=== PATIENT | male | born 1960 | race Caucasian/White ===

== ENCOUNTER 2025-05-22 18:35 | Inpatient (IN) | payer BC, SELFPAY ==
[2025-05-22 14:19] VITALS: BP 123/70
[2025-05-22 14:36] LABS: Hematocrit 44.7 % (39.0-52.0); Hemoglobin 15.4 g/dL (13.0-18.0); Mean Corp Hgb Conc. 34.5 g/dL (33.0-37.0); Mean Corpuscular Volume 86.1 fL (80.0-94.0); Nucleated Red Blood Cells % 0 % (-); Platelet Count 119 10^3/uL (130-400); Red Cell Dist. Width 13.4 % (11.5-14.5)
[2025-05-22 14:47] LABS: ALT (SGPT) 15 U/L (0-50); AST (SGOT) 17 U/L (17-59); Albumin 4.2 g/dl (3.5-5.0); Alkaline Phosphatase 83 U/L (38-126); Blood Urea Nitrogen 16 mg/dl (9-20); Calcium 9.6 mg/dl (8.4-10.2); Carbon Dioxide 22 mmol/L (22-30); Chloride 105 mmol/L (98-107); Glucose 106 mg/dl (70-99); Lipase 30 U/L (23-300); Potassium 4.2 mmol/L (3.5-5.1); Sodium 139 mmol/L (135-145); Total Protein 7.1 g/dl (6.3-8.2); eGFR > 60.00
[2025-05-22] MEDS: NSS 1000 IV (15:25)
[2025-05-22] MEDS: ZOFRAN 4 MG IV (15:31)
[2025-05-22] MEDS: TYLENOL 1000 MG PO (15:33)
--- NOTE | 2025-05-22 17:19 | ED.GENMED ---
History of Present Illness
General
Chief Complaint: Abdominal Symptoms
Time Seen by Provider: 05/22/25 14:58
History of Present Illness
History of Present Illness:
65-year-old male with history of chronic pancreatitis presents to the emergency department for evaluation of nausea, diarrhea, and severe rectal/left gluteal pain that began 4 days ago. Fever began today with sweating. He denies any significant
abdominal pain at this time. No vomiting. Follows with GI at [place] for his chronic pancreatitis, he is on pancreatic enzyme supplementation.
Review of Systems
Review of Systems
Allergies reviewed?: Yes
All Other Systems: ROS reviewed and negative except as documented in HPI and ROS
Phy Exam
Physical Exam
Physical Exam:
GEN: Well appearing, NAD, WDWN
HEENT: Oral mucosa moist, no scleral icterus
Cardiac: Regular rate
Lung: No respiratory distress, no tachypnea
Abdomen: Soft, generally nontender
Rectal: 1 to 2 cm palpable abscess to the left upper perianal soft tissues, slight encroachment on the anal verge with exquisite tenderness to palpation and induration to the left upper gluteal region
MSK: No gross deformity or injuries
Skin: Good color, no pallor or jaundice, no rashes
Neuro: AO x3, moves all extremities freely
Psych: Calm, cooperative
Course
Orders/Labs/Results
Orders:
Orders
05/22/25 14:27
Complete Blood Count/With Diff Urgent
Comprehensive Metabolic Panel Urgent
Lipase Urgent
05/22/25 15:18
Lactic Acid Q4H
Comment: ON ICE, CANCEL 2ND ORDER IF FIRST LACTIC ACID LEVEL <2
Blood Culture Q20M
ELIZABETH Source: Blood/Venous
Specimen Description:
Comment: Urgent from separate sites. If patient screens positive for possible sepsis
Blood Culture Q20M
ELIZABETH Source: Blood/Venous
Specimen Description:
Comment: Urgent from separate sites. If patient screens positive for possible sepsis
05/22/25 15:21
CT Abd/Pel (IV only)-DH only Urgent
Comment:
Reason For Exam: abd pain, fever, diarrhea
05/22/25 15:25
0.9% Sodium Chloride 1000 ml [Nss] 1,000 ml IV BOLUS
05/22/25 15:29
Acetaminophen [Tylenol] 1,000 mg .ROUTE .STK-MED ONE
Ondansetron Injectable [Zofran] 4 mg .ROUTE .STK-MED ONE
05/22/25 15:30
Ondansetron Injectable [Zofran] 4 mg IV NOW STA
05/22/25 15:33
Acetaminophen [Tylenol] 1,000 mg PO NOW STA
05/22/25 17:18
Piperacillin/Tazo 3.375 Gram [Zosyn] 3.375 gram in 50 ml IV NOW
05/22/25 17:57
Admit/Transfer Patient As Directed
Co-Sign Provider:
Level of Care: Inpatient admission
Assign to:: Medical/Surgical
Physician / Group: july
Diagnosis: perianal abscess
Reason for Hospitalization: perianal abscess
Expected length of stay greater than two midnights?: Yes
ELOS- Estimated Length of Stay in days: 3
I certify the patient meets the requirements for IP care: Yes
05/22/25 17:58
Code Status As Directed
Resuscitation Status: Full Code
PRN Pain Medication Management As Directed
May give lesser potent ordered pain med per pt: Yes
preference::
Protocol:: Medication orders for pain may be administered in a
manner that supports deferring to patient preference
when the pt is:
- Requesting an ordered lesser potent pain medication.
Least to most potent pain medications are defined
as: acetaminophen < NSAID < tramadol < opioids
(morphine, oxycodone, hydromorphone).
- Requesting a lesser dose of the same medication IF
ORDERED.
- Requesting a less intrusive route of administration
if both routes are prescribed by the provider (PO <
IV).
05/22/25 18:17
Wound Culture [Wound/Abscess/Other Culture] Urgent
ELIZABETH Source: Abscess
Specimen Description:
Date Specimen was Collected: 05/22/25
Time Specimen was Collected: 18:16
Comment: perirectal
Abnormal Lab Results
05/22/25
14:27
WBC 12.1 H 10^3/uL
(4.8-10.8)
Plt Count 119 L 10^3/uL
(130-400)
MPV 12.0 H fL
(7.4-10.4)
Abs Immat Gran (auto) 0.1 H 10^3/uL
(0-0.05)
Absolute Neuts (auto) 9.9 H 10^3/uL
(1.4-6.5)
Absolute Lymphs (auto) 0.8 L 10^3/uL
(1.2-3.4)
Absolute Monos (auto) 1.3 H 10^3/uL
(0.1-0.6)
Neutrophils % 82.3 H %
(42.2-75.2)
Lymphocytes % 6.2 L %
(20.5-51.1)
Monocytes % 10.8 H %
(1.7-9.3)
Glucose 106 H mg/dl
(70-99)
Total Bilirubin 1.4 H mg/dl
(0.2-1.3)
05/22/25 14:27
05/22/25 14:27
Vital Signs
Initial and Last Documented VS:
Initial Vital Signs
Temp Pulse Resp BP Pulse Ox
99 F 103 18 123/70 99
05/22/25 14:19 05/22/25 14:19 05/22/25 14:19 05/22/25 14:19 05/22/25 14:19
Last Documented Vital Signs
Temp Pulse Resp BP Pulse Ox
98.6 F 78 18 111/69 95
05/22/25 19:32 05/22/25 19:32 05/22/25 19:32 05/22/25 19:32 05/22/25 19:32
MDM/Problems Addressed
MDM/Problems Addressed:
Imaging reveals significant perirectal abscess with subcutaneous gas formation despite lack of prior instrumentation. Colorectal surgery consulted who saw the patient at the bedside to perform stat bedside I&D. Will admit for IV antibiotics and
further management
*Pulse Oximetry
SaO2: 99
Oxygen Mode of Delivery: Room air
Patient hypoxic: no
*Critical Care Note
Total Time (30-74mins, 75-104mins- exclusive of procedures): Not Applicable
ED Attending Note
-
Portions of this chart may have been created with voice recognition software.� Occasional wrong word or��sound alike� substitutions may have occurred due to the inherent limitations of voice recognition software.
Discharge Plan
Departure
Patient Disposition: Admit
Date of Disposition: 05/22/25
Time of Disposition: 17:28
Admit to: Med/Surg
Presentation/result/management discussed w/ accepting MD/DO: Hospitalist
Discharge Problem:
Abscess, perirectal
Interventions
Interventions:
*Risk Screen - Suicide Last Done: 05/22/25 19:32
*General Assessment Last Done: 05/22/25 14:19
*Neglect/Abuse Screening Last Done: 05/22/25 14:19
*ED COVID-19 Vaccine History Last Done: 05/22/25 17:50
FP-Aoacww-Ajpgdxlist Assessment Last Done: 05/22/25 16:11
[2025-05-22] MEDS: ZOSYN 50 IV (17:25)
--- NOTE | 2025-05-22 17:54 | HPS.HSE ---
Addendum entered and electronically signed by Ana María Pinedo MD 05/22/25 19:49:
EKG reviewed-sinus rhythm, LVH, inferior infarct age undetermined. No A-fib
Addendum entered and electronically signed by Ana María Pinedo MD 05/22/25 19:18:
65-year-old man with history of pain in the rectal area. Patient was seen by colorectal surgeon and I&D performed . Pain started Wednesday. Also had mild temperature
CT abdomen pelvis-straightening and edema within the inferior medial left gluteal soft tissues extending towards the perianum associated with 3.2 into 2.4 into 6.7 cm gas and fluid containing collection in the subcutaneous soft tissues consistent
with infection and abscess. Bilateral adrenal nodules measuring 2.7 cm on the right and 2.5 cm on the left. Colonic diverticulosis. Mild splenomegaly. Prior cholecystectomy.
Awake alert oriented
Cardiovascular system S1-S2 appreciated
Chest clear to auscultation
Abdomen soft and nontender
Rectal area with packing
No pedal edema
Right foot drop, weakness of the right hand-chronic both from previous spine surgeries
# Perianal abscess
Status post I&D at bedside
Culture sent
Because of the CT findings will add meropenem and vancomycin
Wound care per colorectal surgeon
Okay for a diet per discussion
# History of coronary disease-with history of 2 stents continue Plavix, losartan, Zetia, statin. Denies any chest pain or shortness of breath
# H/O paroxysmal A-fib-not on anticoagulants anymore. Because of hemoglobin drop he is placed on Plavix now since January 2024
# Mild ijhtdlvvayfmhqpi-hvcuxj-yr
# History of pancreatitis-takes Creon for insufficiency
# History of cervical and lumbar spine fusion-right foot drop, right hand weakness
# Bilateral adrenal nodules-patient needs further workup as outpatient . This should be instructed at discharge
# Diverticulosis
# Active smoker-cessation counseling
# DVT prophylaxis-Lovenox
# Full code
Discussed with colorectal surgeon
Discussed with on the phone at bedside
Part of this note was created using voice recognition system. Occasional wrong word or��sound alike� substitutions may have inadvertently occurred due to the inherent limitations of voice recognition software. If noted kindly bring it to my
attention for correction.
Original Note:
Family Physician
-
Family Physician: Dwayne Schmitz MD
Chief Complaint
-
n/v/d
rectal pain
History of Present Illness
65-year-old male with history of chronic pancreatitis,, A-fib, hyperlipidemia hypertension presents to the emergency department for evaluation of nausea, diarrhea, and severe rectal/left gluteal pain that began 4 days ago. he was sweating today. he
was evaluated by PCP and prescribed doxycycline. Patient complained of dizziness. Patient denied any cough, congestion. Patient denied any chest pain or short of breath. Patient denied any dysuria hematuria.
CT with abscess. I&D at the bedside. patient received Tylenol, normal saline, Zofran, Zosyn in the ER. Blood culture sent from ER
Medical History
Past Medical History
Past Medical History: Reports Other
Additional Past Medical History:
Paroxysmal A-fib, hypertension, hyperlipidemia, dropfoot.
Past Surgical History: Reports Other
Additional Past Surgical History:
Cholecystectomy
Laminectomy
Double fusion
Neck surgery
Social History
Tobacco: Non-smoker
Alcohol: None
Drug: None
Employment: Employed
Family History
Family History: Not pertinent
Allergies / Home Medications
Allergies reflects when Allergies were last updated in [facility].
Home Medications with original date entered in [facility]
Allergy/Medication List:
Allergies
Allergy/AdvReac Type Severity Reaction Status Date / Time
No Known Allergies Allergy Unverified 05/22/25 14:21
Review of Systems
-
Constitutional: Reports No Symptoms
EENT: Reports No Symptoms
Respiratory: Reports No Symptoms
Cardiac: Reports No Symptoms
Abdomen/GI: Reports Abdominal Pain, Nausea, Vomiting and Diarrhea
: Reports No Symptoms
Musculoskeletal: Reports No Symptoms
Skin: Reports No Symptoms
Neurological: Reports No Symptoms
Endocrine: Reports No Symptoms
Hematologic/Lymphatic: Reports No Symptoms
Psych: Reports No Symptoms
Physical Exam
Vital Signs
Vital Signs
Temp Pulse Resp BP Pulse Ox
99.4 F 83 18 123/70 98
05/22/25 16:00 05/22/25 17:45 05/22/25 17:45 05/22/25 14:19 05/22/25 17:45
Physical Exam
General: Well Developed, Well Nourished and No Apparent Distress
HEENT: NormoCephalic, Moist mucous membranes and Atraumatic
Respiratory: Clear
Cardiac: S1/S2 and Regular Rhythm; No Murmur or Rub
GI: Soft, Non Tender, Non Distended and Normal Bowel Sounds; No Organomegaly
Rectal: Deferred by Provider
Musculoskeletal: No Clubbing, No Cyanosis and No Edema
Skin: No Rash
Neuro: AO x 3 and Nonfocal/grossly intact
Psych: Calm
Laboratory Results
-
05/22/25 14:27
05/22/25 14:27
Laboratory Results
Lactic Acid Cancelled 05/22/25 19:30
Total Bilirubin 1.4 mg/dl (0.2-1.3) H 05/22/25 14:27
AST 17 U/L (17-59) 05/22/25 14:27
ALT 15 U/L (0-50) 05/22/25 14:27
Alkaline Phosphatase 83 U/L (38-126) 05/22/25 14:27
Lipase 30 U/L (23-300) 05/22/25 14:27
Data Reviewed
-
CT Scan: Report Reviewed by me
Lab Data: Labs Reviewed by me
Impression/Plan
-
# Rectal/perianal abscess
-Status post I&D at the bedside
-Will continue IV meropenem and Vanco
- Surgery consulted
- WBC 12.1
- CT abdomen pelvis with impression straightening and edema within the inferior medial left gluteal soft tissues extending towards the perineum with associated 3.2 x 2.4 x 6.7 cm gas and fluid containing collection in the subcutaneous soft tissues
consistent with infection and abscess formation.There are bilateral adrenal nodules measuring 2.7 cm on the right and 2.5 cm on the left. These nodules are incompletely characterized on this examination. If not previously evaluated a dedicated
adrenal CT or MRI may be considered for further evaluation.
- ID consulted
# Thrombocytopenia
- Platelets 190
- Continue to monitor
# GERD
- PPI continue
# Essential hypertension
- Losartan continued with hold parameter
# History of laminectomy/double fusion with dropfoot
- Lyrica continued
# Hyperlipidemia
- Rosuvastatin and Zetia continued
# Essential hypertension
- Coreg continue with hold parameter
# History of paroxysmal A-fib
- Obtain EKG
- Patient was on Xarelto which was discontinued due to low hemoglobin
- At present on Plavix
#DVT prophylaxis
-heparin sq
#CODE status
-full code
--- NOTE | 2025-05-22 17:55 | CON.MD ---
Consultation - Medical
-
Full consult to be dictated.
Assessment/Plan: 65 yo M with a number of medical issues with history of perianal abscess treated apparently with antibiotics earlier in the year with new perianal abscess on exam and CT. Has associated pain, erythema, fluctuance, leukocytosis and
fever. Bedside I and D recommended. Risks and benefits discussed and he agrees to proceed. Would keep on antibiotics as well.
Thanks.
Consultation
-
Date/Time Consultation Requested: 05/22/25
Date/Time Consultation Performed: 05/22/25
Performing Provider: Andrew
Reason for Consultation: Perianal abscess
[2025-05-22 18:14] VITALS: BP 135/65
--- NOTE | 2025-05-22 18:59 | W.IMMPOSTOP ---
Surgical Immed Post Op Note
-
Primary Surgeon: Jackie Morales MD
Assisting Surgeon: Kelsie Mcneal MD, PGY6
Pre-op Diagnosis: perianal abscess
Post-op Diagnosis: same
Procedure Performed: incision and drainage of perianal abscess
Anesthesia Type: local
Specimen / Cultures: pus sent for culture
Estimated Blood Loss: 5 cc
Complications: no immediate
Operative Findings: left posterior perianal abscess
Packed with 1/4 inch iodoform and covered with gauze.
updated afterwards.
[2025-05-22 19:32] VITALS: BP 111/69
[2025-05-22 19:34] VITALS: BMI 21.9
[2025-05-22 19:51] VITALS: BP 143/81; BMI 22.9
--- NOTE | 2025-05-22 20:47 | PTCARENOTE ---
Patient received on unit via internal transport as admission from Emergency department. No acute distress is noted upon admission. Endorses chronic pain but declines medications at this time. Admission assessment and vital signs assessment performed
per protocol.
[2025-05-22] MEDS: VANCOCIN 275 MG IV (21:12)
[2025-05-22] MEDS: COREG 6.25 MG PO (21:14)
[2025-05-22] MEDS: PROTONIX 40 MG PO (21:16)
[2025-05-22] MEDS: LYRICA 200 MG PO (22:17)
[2025-05-22] MEDS: MERREM 500 MG IV (22:19)
[2025-05-22] MEDS: STERILE WATER FOR INJECTION 10 ML IV (22:20)
--- NOTE | 2025-05-22 22:46 | PHA.VAN.IN ---
Addendum entered and electronically signed by Dori Ferrera [facility] 05/23/25 09:17:
AUC Dosing Plan
- Dosing Variables
Dosing Weight (kg): 62
Dosing CrCl (ml/min): 81
Vd coefficient (L/kg): 0.7
- Empiric Dosing
Initial / Loading Dose: 1250 MG around 2100
Maintenance Regimen: 750 MG IV Q12H
Estimated AUC (mcg*h/mL): 500
Estimated Peak (mcg*h/mL): 30
Estimated Trough (mcg/ml): 13.6
Estimated Half Life (H): 9.7
- Monitoring
No levels ordered at this time: consider levels in next few days
Original Note:
Assessment
- Assessment
Renal Function: Appears similar to baseline
Concomitant Antimicrobials: MEROPENEM
AUC Dosing Plan
- Empiric Dosing
Initial / Loading Dose: 1250 MG around 2100
Maintenance Regimen: 750 MG IV Q12H
Pharmacokinetics Vancomycin I
- -
Patient Age: 65
Patient Sex: Male
Vancomycin Day #: 1
Indication: Gi / Intra-Abdominal
Requesting Provider: NILES Vidal
Height / Weight:
Height 5 ft 5 in
Actual Weight 62.46 kg
- Vital Signs / Lab Results
Temp Pulse Resp BP Pulse Ox
98.6 F 84 16 143/81 98
05/22/25 19:51 05/22/25 21:14 05/22/25 19:51 05/22/25 21:14 05/22/25 19:51
Lab Results - Hematology
05/22/25
14:27
WBC 12.1 H
Lab Results - Chemistry
05/22/25
14:27
BUN 16
Creatinine 0.8
Albumin 4.2
05/22/25 05/22/25
15:18 19:30
Lactic Acid 1.3 Cancelled
[2025-05-22] MEDS: ZENPEP DELAYED RELEASE CAPSULE 2 CAPSULE PO (23:10)
[2025-05-22 23:21] VITALS: BP 110/59
[2025-05-23] MEDS: MERREM 500 MG IV ×4 (04:13→21:13)
[2025-05-23] MEDS: STERILE WATER FOR INJECTION 10 ML IV ×4 (04:14→21:13)
[2025-05-23] MEDS: VANCOCIN 150 IV ×2 (06:06→17:35)
[2025-05-23 07:05] VITALS: BP 134/69
[2025-05-23 07:38] LABS: Hematocrit 39.5 % (39.0-52.0); Hemoglobin 13.4 g/dL (13.0-18.0); Mean Corp Hgb Conc. 33.9 g/dL (33.0-37.0); Mean Corpuscular Volume 87.0 fL (80.0-94.0); Platelet Count 95 10^3/uL (130-400); Red Cell Dist. Width 13.6 % (11.5-14.5)
[2025-05-23] MEDS: CRESTOR 20 MG PO (08:21)
[2025-05-23] MEDS: SENOKOT-S 1 TABLET PO ×2 (08:21→15:34)
[2025-05-23] MEDS: ZETIA 10 MG PO (08:21)
[2025-05-23] MEDS: ZENPEP DELAYED RELEASE CAPSULE 2 CAPSULE PO ×3 (08:21→17:35)
[2025-05-23] MEDS: PROTONIX 40 MG PO ×2 (08:21→20:28)
[2025-05-23] MEDS: LYRICA 200 MG PO ×3 (08:21→21:10)
[2025-05-23] MEDS: COZAAR 50 MG PO (08:22)
[2025-05-23] MEDS: COREG 6.25 MG PO ×2 (08:24→20:27)
[2025-05-23] MEDS: MIRALAX PO ×2 (08:24→08:29)
--- NOTE | 2025-05-23 08:26 | W.PN.UPDATE ---
Update Note
Progress Note Update
I saw and evaluated the patient. I reviewed the resident�s note and agree with findings and plan as documented in the resident�s note.
Pt states he feels much better since abscess was drained.
Gen: NAD, AAOx3.
Eyes: EOMI, PERRLA, no scleral icterus.
Neck: supple.
CV: RRR, +S1/S2, no m/r/g.
Resp: CTAB, no rales, wheezes, or rhonchi.
Abd: +BS, soft, NT, ND
Skin: No rashes.
Neuro: CN 2-12 intact
Psych: Normal mood and affect.
CT A/P: straightening and edema within the inferior medial left gluteal soft tissues extending towards the perianum associated with 3.2 into 2.4 into 6.7 cm gas and fluid containing collection in the subcutaneous soft tissues consistent with
infection and abscess. Bilateral adrenal nodules measuring 2.7 cm on the right and 2.5 cm on the left. Colonic diverticulosis. Mild splenomegaly. Prior cholecystectomy.
Perianal abscess:
-s/p I&D at bedside on admission
-follow WCx
-CRS following
-wound care
-leukocytosis has resolved
-cont Vanco/Meropenem, c/s ID
Other problems:
CAD with h/o stents: cont Plavix/Zetia/statin
PAF: no on AC [employer]
Mild thrombocytopenia, likely consumptive, trend
Pancreatic insufficiency: cont Creon
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
Tobacco abuse disorder: Cessation counseling
Incidental finding: Bilateral adrenal nodules
FULL/Lovenox
--- NOTE | 2025-05-23 09:10 | PHA.VAN.FU ---
Vancomycin Assessment / Plan
- Assessment
Renal Function: No New Labs Today
Concomitant Antimicrobials: meropenem
- Dosing Plan
Continue: Vanc 750mg Q12H
- Monitoring Plan
No level(s) ordered at this time: consider levels in next few days
- Follow Up
Pharmacy will continue to follow.
Vancomycin Follow UP
- -
Patient Age: 65
Patient Sex: Male
Vancomycin Day #: 2
Indication: Gi / Intra-Abdominal
Requesting Provider: Young Sanchez
Pertinent Antimicrobial Allergies:
NKDA
Height / Weight:
Height 5 ft 5 in
Actual Weight 62.46 kg
- Vital Signs / Lab Results
Temp Pulse Resp BP Pulse Ox
99 F 77 16 110/59 96
05/22/25 23:21 05/23/25 08:22 05/22/25 23:21 05/23/25 08:22 05/22/25 23:21
Lab Results - Hematology
05/22/25 05/23/25
14:27 06:57
WBC 12.1 H 8.6
Lab Results - Chemistry
05/22/25
14:27
BUN 16
Creatinine 0.8
Albumin 4.2
05/22/25 05/22/25
15:18 19:30
Lactic Acid 1.3 Cancelled
--- NOTE | 2025-05-23 10:11 | W.PN.HOSP.TC ---
Today's Communication/Plan
-
Continue wound care
Appreciate ID recs
Assessment / Plan
Assessment / Plan
Dong is a 65-year-old man with a history of CAD s/p stents on Plavix, paroxysmal A-fib, history of pancreatitis with pancreatic insufficiency, diverticulosis, smoking cessation, and bilateral adrenal nodules for which he needs more workup outpatient
who presented to the ED on 05/22/2025 with pain in the rectal area found to have perianal abscess on exam and CT. He is s/p I&D with surgery on 05/22/2025 with CRS following.
#Perianal abscess s/p I&D
-CRS following.
-ID consulted, appreciate recs.
-Follow-up wound cultures and continue wound care.
-Continue IV vancomycin 750 mg twice daily and meropenem 500 mg every 6 hours for now.
#CAD s/p stents
-Continue home Plavix 75 mg p.o. daily, Zetia 10 mg p.o. daily, losartan 50 mg p.o. daily
#Paroxysmal A-fib
-Not on anticoagulation per his [place] mail [place]
#History of pancreatitis
#Pancreatic insufficiency
-Continue home Creon 2 capsules p.o. 3 times daily
#Bilateral adrenal nodules
These were seen on CT A/P 05/22/2025 and need further workup outpatient.
-Instructed patient to follow-up outpatient
#Nicotine dependence
-Continue cessation counseling
DVT prophylaxis: Lovenox
CODE STATUS: Full code
Anticipated Discharge: Within 24 hours (Pending ID recs and CRS clearance.)
Subjective/Interval History
-
Date of Service: May 23, 2025
-S/p I&D of perianal abscess with surgery yesterday. This morning, he is a little bit sore (no pain) at the drainage site, but overall states feeling 'much better.'
-He endorses ongoing chills and sweats, but otherwise no other symptoms. He is awaiting breakfast and states that he usually has a bowel movement afterwards, so he is nervous for that today.
Objective Data
-
Labs:
Laboratory Results
05/23/25
06:57
WBC 8.6
Hgb 13.4
Hct 39.5
Plt Count 95 L D
Vital Signs:
Vital Signs
Temp Pulse Resp BP Pulse Ox
98.1 F 77 20 110/59 96
05/23/25 07:05 05/23/25 08:22 05/23/25 07:05 05/23/25 08:22 05/23/25 07:05
Review of Systems
-
All other systems: Reviewed and negative
Constitutional: Reports Fatigue, Chills and Weakness
Physical Exam
-
General: Well Developed, Well Nourished, No Apparent Distress, Comfortable, Conversant and Other (Sitting leaning to the right side in bed waiting for breakfast.)
HEENT: Normocephalic, Atraumatic and Moist Mucous Membranes
Respiratory: Clear to Auscultation and Non Labored Respirations
Cardiac: Regular Rhythm and S1/S2
GI: Soft, Nontender, Nondistended and Normal Bowel Sounds
Rectal: Deferred by Provider and Other (Dressing and gauze over buttocks noted.)
Musculoskeletal: No Clubbing, No Cyanosis and No Edema
Skin: Warm (And clammy)
Neuro: AO x 3
Psych: Calm and Intact Judgement/Insight
--- NOTE | 2025-05-23 10:26 | W.PN.CRS1 ---
Today's Communication / Plan
-
wound care
finish course of antibiotics
sitz baths
okay for d/c from our perspective
start plavix tomorrow
Assessment/Plan
-
POD#1 incision and drainage of perianal abscess
WBC: 8.6, Hgb 12.4. Vitals normal.
-Dressing changed at bedside this AM. Discussed with patient how to care for wound at home.
-Sitz baths twice a day for 7 days.
-Stool softeners as needed
-Complete course of oral antibiotics
-Follow up in the office in 2 weeks for a wound check
-Okay for d/c from our perspective.
-Restart plavix tomorrow, 05/24/25. Discussed with patient.
Subjective Data
Procedure
05/22/25- incision and drainage of perianal abscess
Subjective Data
Date of Service: May 23, 2025
Patient states he feels well. His pain is completely gone. He is afraid to have a bowel movement. Denies nausea or vomiting.
Objective Data
-
Vital Signs
Temp Pulse Resp BP Pulse Ox
98.1 F 77 20 110/59 96
05/23/25 07:05 05/23/25 08:22 05/23/25 07:05 05/23/25 08:22 05/23/25 07:05
Intake & Output
05/22/25 05/23/25 05/24/25
06:59 06:59 06:59
Other:
Number of approximated MODERATE 1
amounts of urine
Lab Results
05/23/25 06:57
05/22/25 14:27
Physical Exam
-
General: No Acute Distress and AOx3
Abdomen: Soft, Non Distended and Non Tender
Wound: Dressing Changed (wound with no erythema, some pus)
--- NOTE | 2025-05-23 11:12 | CM ---
Patient seen at bedside
IA Completed
Dx: Perianal abcess
OPERATION: Incision and drainage of perianal abscess
ID consult
Lives with Florinda in a 2 story home, 0 JUNE, 8 steps to bed/bath
PLOF: independent, cane used outside
DME: Cane, walker
Denies VN/Rehab
Denies insecurities
PCP: Dwayne Schmitz
Pharmacy: [facility], [address] [place] [address]/[facility]
PLAN: home, no needs anticipated
[2025-05-23 15:05] VITALS: BP 100/56
--- NOTE | 2025-05-23 15:05 | CON.ID ---
Consultation
-
Date/Time Consultation Requested: 05/22/25 PM
Date/Time Consultation Performed: 05/23/25 AM
Requesting Provider: Dr Cameron
Performing Provider: Dr Gay
Reason for Consultation: perirectal abscess
Chief Complaint / Past History
Chief Complaint
The patient states that he has a history of 'boils' abscesses in past so is not surprised to have another episode. He states that this time he had abdominal/rectal pain and mistook his malaise and fatigue for another episode of pancreatitis.He has 4
days of nausea,vomiting, diarrhea and rectal pain and come to ED after experiencing high fever ans sweats at home the day of admission.
History of Present Illness
The patient states that the fever and sweats concerned him and he wasn't improving at home. The symptoms were a bit different from his usual pancreatitis attacks and the rectal pain was getting worse over the last 4 days.
he wasnt having usual abdominal pain that he gets with attacks of pancreatitis.
Past History
Past Medical History: Arrhythmias (AF), HTN (pancreatitis,diverticular disease,,adrenal nodules,drop foot from spine surgery) and Hypercholesterolemia
Past Surgical History: Cholecystectomy and Orthopedic (laminectomy L/S spine with resulting drop foot)
Allergy History:
No Known Allergies Allergy (Verified 05/22/25 19:35)
Medications Reviewed: Yes
Current Antibiotics:
Merrem and Vancomycin
Social History
Tobacco: Non-Smoker
Alcohol: None
Drug: None
Employment: Employed
Family History
Family History: Not Pertinent
Review of Systems
Review of Systems
General: Fever
Gasteroenterology: Nausea, Vomiting and Diarrhea
Endocrine: Weakness and Fatigue
All systems: All other systems were reviewed and were negative
Vital Signs
Temp Pulse Resp BP Pulse Ox
98.1 F 77 20 110/59 96
05/23/25 07:05 05/23/25 08:22 05/23/25 07:05 05/23/25 08:22 05/23/25 07:05
Physical Exam
Physical Exam
Constitutional: No Acute Distress, Well Developed, Comfortable, Chronically Ill, Non-toxic and Cachetic
Head: Normocephalic
Eyes: Pupils Equal, Pupils Round, No Conjunctival Hemorrhage and Sclera Anicteric
Pharynx: Benign
Oral: No Thrush and No Ulcers
Cardiovascular: Regular Rate
Pulmonary: Clear and Non Labored
Gastrointestinal: Soft, Non Tender and Decreased Bowel Sounds
Extremities: Pulses
Musculoskeletal: Other (drop foot right uses cane)
Skin: Warm and Dry
Wound: Other (surgical wound POD#1 dressed)
Neurological: Awake, Alert, Oriented and AO x 3 (drop foot right uses cane ,good eye contact, conversant, appropriate)
Psychological: Calm
Lab / Diagnostic Study Results
05/23/25 06:57
05/22/25 14:27
Abs Immat Gran (auto) 0.1 10^3/uL (0-0.05) H 05/22/25 14:27
Absolute Neuts (auto) 9.9 10^3/uL (1.4-6.5) H 05/22/25 14:27
Absolute Lymphs (auto) 0.8 10^3/uL (1.2-3.4) L 05/22/25 14:27
Absolute Monos (auto) 1.3 10^3/uL (0.1-0.6) H 05/22/25 14:27
Absolute Basos (auto) 0.0 10^3/uL (0-0.2) 05/22/25 14:27
Immature Gran % 0.5 % (0-0.5) 05/22/25 14:27
Neutrophils % 82.3 % (42.2-75.2) H 05/22/25 14:27
Lymphocytes % 6.2 % (20.5-51.1) L 05/22/25 14:27
Monocytes % 10.8 % (1.7-9.3) H 05/22/25 14:27
Eosinophils % 0.0 % (0-6) 05/22/25 14:27
Basophils % 0.2 % (0-2) 05/22/25 14:27
Lactic Acid Cancelled 05/22/25 19:30
Microbiology Results
Micro:
05/22/25 18:17 Wound Culture - Pending
Abscess Gram Stain - Preliminary
05/22/25 15:18 Blood Culture - Pending
Blood/Venous
05/22/25 15:18 Blood Culture - Pending
Blood/Venous
Assessment / Plan
1. CT imaging with fluid collection found left gluteal soft tissue with 2.4 x 3.2 x 6.7 cm collection of liquid/ gas suggestive of abscess with associated stranding in the left gluteal soft tissue ( incidental findings found enlarged spleen and
adrenal nodules)
2. [place]-rectal surgery was consulted with surgery performed with drainage and packing with cultures pending from intra-operative specimen
3. Empiric antibiotic was started with Vancomycin and Merrem
4. Culture results are currently pending with targeted antibiotic to be provided when results available
5. The patient is currently afebrile with decreased leukocytosis
Thank you for calling ID consultation
The ID team will continue to follow with you
Please call u with any questions or concerns
Care Review
Total Time Spent with Patient (in minutes): discussed wound with patient and answered his questions
[2025-05-23 16:10] VITALS: BP 103/61
[2025-05-23] MEDS: ULTRAM 25 MG PO (21:11)
[2025-05-23 23:30] VITALS: BP 119/69
--- NOTE | 2025-05-23 23:40 | PTCARENOTE ---
Patient provided sitz bath for perianal wound. Approximately 1000mls of warm water administered at bedside. Patient verbalizes mild relief of pain at wound site. Area dried, sterile gauze and protective covering applied to protect site.
[2025-05-24] VITALS (7 sets, daily range): BP systolic 108–137; BP diastolic 55–87
[2025-05-24] MEDS: MERREM 500 MG IV ×4 (03:56→21:37)
[2025-05-24] MEDS: STERILE WATER FOR INJECTION 10 ML IV ×4 (03:57→21:37)
[2025-05-24] MEDS: VANCOCIN 150 IV ×2 (05:44→18:15)
[2025-05-24 05:52] LABS: Hematocrit 38.2 % (39.0-52.0); Hemoglobin 13.1 g/dL (13.0-18.0); Mean Corp Hgb Conc. 34.3 g/dL (33.0-37.0); Mean Corpuscular Volume 86.0 fL (80.0-94.0); Platelet Count 102 10^3/uL (130-400); Red Cell Dist. Width 13.5 % (11.5-14.5)
--- NOTE | 2025-05-24 07:55 | PTCARENOTE ---
Surgeon informed at bedside that patient feels another lump on buttock.
--- NOTE | 2025-05-24 08:47 | W.PN.UPDATE ---
Update Note
Progress Note Update
I saw and evaluated the patient. I reviewed the resident�s note and agree with findings and plan as documented in the resident�s note.
Pt states he 'feels another lump.'
Gen: NAD, AAOx3.
Eyes: EOMI, PERRLA, no scleral icterus.
Neck: supple.
CV: remains RRR, +S1/S2, no m/r/g.
Resp: remains CTAB, no rales, wheezes, or rhonchi.
Abd: remains +BS, soft, NT, ND
Skin: No rashes.
Neuro: CN 2-12 intact
Psych: Normal mood and affect.
05/22/25 15:18 Blood/Venous Blood Culture - Preliminary
No Growth in 24 hours- Final report to follow
05/22/25 15:18 Blood/Venous Blood Culture - Preliminary
No Growth in 24 hours- Final report to follow
05/22/25 18:17 Abscess Gram Stain - Preliminary
CT A/P: straightening and edema within the inferior medial left gluteal soft tissues extending towards the perianum associated with 3.2 into 2.4 into 6.7 cm gas and fluid containing collection in the subcutaneous soft tissues consistent with
infection and abscess. Bilateral adrenal nodules measuring 2.7 cm on the right and 2.5 cm on the left. Colonic diverticulosis. Mild splenomegaly. Prior cholecystectomy.
Sepsis (POA) due to perianal abscess:
-s/p I&D at bedside on admission
-follow WCx
-CRS following, recommending repeat CT pelvis
-wound care
-leukocytosis has resolved
-cont Vanco/Meropenem
-ID following
Other problems:
CAD with h/o stents: cont Plavix/Zetia/statin
PAF: no on AC FIRMWARE ARCHITECT
Mild thrombocytopenia, likely consumptive, trend
Pancreatic insufficiency: cont Creon
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
Tobacco abuse disorder: Cessation counseling
Incidental finding: Bilateral adrenal nodules
FULL/Lovenox
--- NOTE | 2025-05-24 08:47 | PHA.VAN.FU ---
Vancomycin Assessment / Plan
- Assessment
Renal Function: No New Labs Today
Concomitant Antimicrobials: meropenem
- Dosing Plan
Continue: Vanc 750mg Q12H
- Monitoring Plan
No level(s) ordered at this time: consider levels in next few days
Monitoring Comments: BUN & SCR ordered per protocol
- Follow Up
Pharmacy will continue to follow.
Vancomycin Follow UP
- -
Patient Age: 65
Patient Sex: Male
Vancomycin Day #: 3
Indication: Gi / Intra-Abdominal
Requesting Provider: Young Sanchez / Dr. Gay
Pertinent Antimicrobial Allergies:
NKDA
Height / Weight:
Height 5 ft 5 in
Actual Weight 62.46 kg
- Vital Signs / Lab Results
Temp Pulse Resp BP Pulse Ox
97.6 F 70 18 127/72 98
05/24/25 07:10 05/24/25 07:10 05/24/25 07:10 05/24/25 07:10 05/24/25 07:10
Lab Results - Hematology
05/22/25 05/23/25 05/24/25
14:27 06:57 05:20
WBC 12.1 H 8.6 6.9
Lab Results - Chemistry
05/22/25
14:27
BUN 16
Creatinine 0.8
Albumin 4.2
05/22/25 05/22/25
15:18 19:30
Lactic Acid 1.3 Cancelled
Microbiology Results
05/22/25 15:18 Blood Culture - Preliminary
Blood/Venous No Growth in 24 hours- Final report to follow
05/22/25 15:18 Blood Culture - Preliminary
Blood/Venous No Growth in 24 hours- Final report to follow
05/22/25 18:17 Gram Stain - Preliminary
Abscess
[2025-05-24] MEDS: ZENPEP DELAYED RELEASE CAPSULE 2 CAPSULE PO ×2 (08:50→17:40)
[2025-05-24] MEDS: CRESTOR 20 MG PO (08:50)
[2025-05-24] MEDS: ULTRAM 25 MG PO (08:50)
--- NOTE | 2025-05-24 08:50 | W.PN.CRS1 ---
Today's Communication / Plan
-
As below
Assessment/Plan
-
65-year-old male with PMH of A-fib, CAD, HLD, HTN, chronic pancreatitis who presented with perianal pain and WBC of 12, CT showing perianal abscess
POD 2 incision and drainage
AFVSS
WBC 6.9 from 8.6
� Due to worsening left-sided anal pain, will repeat CT pelvis with IV contrast
�If abscess identified, will likely perform repeat UA with I&D
� If no abscess identified, likely component of cellulitis and okay for DC from colorectal standpoint once medically clear; will need follow-up with Dr. Morales in 1 to 2 weeks
� Keep NPO until CT done
� Continue antibiotics, follow-up cultures, appreciate ID
�Continue for DVT PPx with Lovenox
�Appreciate hospitalist
Subjective Data
Procedure
05/22/25- incision and drainage of perianal abscess
Subjective Data
Date of Service: May 24, 2025
This morning, complaining of new pain in the perianal region toward the left lateral aspect and the feeling of worsening swelling. Denies any fevers. Otherwise doing well.
Objective Data
-
Vital Signs
Temp Pulse Resp BP Pulse Ox
97.6 F 70 18 127/72 98
05/24/25 07:10 05/24/25 07:10 05/24/25 07:10 05/24/25 07:10 05/24/25 07:10
Intake & Output
05/23/25 05/24/25 05/25/25
06:59 06:59 06:59
Intake Total 1140 / 1140
Balance 1140 / 1140
Intake:
Oral fluids 1140 / 1140
Other:
Number of approximated MODERATE 1 1
amounts of urine
Number of approximated LARGE 1
amounts of urine
Lab Results
05/24/25 05:20
05/22/25 14:27
Physical Exam
-
General: No Acute Distress and AOx3
HEENT: Grossly Normal
Abdomen: Soft, Non Distended and Non Tender
Rectal: Other (Posterior wound clean, no purulence or surrounding erythema, evidence of granulation tissue; left lateral aspect mildly tender to palpation, no palpable fluctuance or erythema)
[2025-05-24] MEDS: COREG 6.25 MG PO ×2 (08:51→20:24)
[2025-05-24] MEDS: LYRICA 200 MG PO ×3 (08:51→21:37)
[2025-05-24] MEDS: PROTONIX 40 MG PO ×2 (08:51→20:24)
[2025-05-24] MEDS: MIRALAX PO (08:51)
[2025-05-24] MEDS: SENOKOT-S 1 TABLET PO ×2 (08:51→17:39)
[2025-05-24] MEDS: COZAAR 50 MG PO (08:51)
[2025-05-24] MEDS: ZETIA 10 MG PO (08:51)
--- NOTE | 2025-05-24 10:29 | W.PN.HOSP.TC ---
Today's Communication/Plan
-
Repeat CT pelvis with IV contrast ISO new anal pain and suspicion for recurrent perianal abscess
Continue IV antibiotics
Assessment / Plan
Assessment / Plan
Dong is a 65-year-old man with a history of CAD s/p stents on Plavix, paroxysmal A-fib, history of pancreatitis with pancreatic insufficiency, diverticulosis, smoking cessation, and bilateral adrenal nodules for which he needs more workup outpatient
who presented to the ED on 05/22/2025 with pain in the rectal area found to have perianal abscess on exam and CT. He is s/p I&D with surgery on 05/22/2025 with CRS following. On 05/24/2025, he endorsed feeling a lump and new anal pain. CRS performed a
physical exam and recommended repeat CT pelvis with IV contrast ISO possible new perianal abscess versus perianal abscess reformation.
#Perianal abscess s/p I&D
#Perianal pain, new on 05/24/2025
-CRS following.
--Recommend repeat CT pelvis with IV contrast on 05/24/2025 given concern for new versus reformation of perianal abscess
--N.p.o. until CT complete
--Follow-up repeat CT pelvis
-ID following, appreciate recs.
--Follow-up wound cultures and continue wound care.
--Continue IV vancomycin 750 mg twice daily and meropenem 500 mg every 6 hours for now.
#CAD s/p stents
-Continue home Plavix 75 mg p.o. daily, Zetia 10 mg p.o. daily, losartan 50 mg p.o. daily
#Paroxysmal A-fib
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
#History of pancreatitis
#Pancreatic insufficiency
-Continue home Creon 2 capsules p.o. 3 times daily
#Bilateral adrenal nodules
These were incidental and seen on CT A/P 05/22/2025 and need further workup outpatient.
-Instructed patient to follow-up outpatient
#Nicotine dependence
-Continue cessation counseling
DVT prophylaxis: Lovenox
CODE STATUS: Full code
Anticipated Discharge: 24 - 48 hours (Pending repeat CT pelvis)
Subjective/Interval History
-
Date of Service: May 24, 2025
-This morning, he says that he feels like abscess is reforming and was having more pain than yesterday. He had to go to the bathroom during our subjective history taking, so the rest of my subjective history was collected in conversation with
nursing and other consultants.
- Per CRS, will make him n.p.o. to repeat CT pelvis with IV contrast.
Objective Data
-
Labs:
Laboratory Results
05/24/25
05:20
WBC 6.9
Hgb 13.1
Hct 38.2 L
Plt Count 102 L
Vital Signs:
Vital Signs
Temp Pulse Resp BP Pulse Ox
97.6 F 70 18 127/72 98
05/24/25 07:10 05/24/25 08:51 05/24/25 07:10 05/24/25 08:51 05/24/25 07:10
I&O
05/23/25 05/24/25 05/25/25
06:59 06:59 06:59
Intake Total 1140 / 1140 240 / 240
Balance 1140 / 1140 240 / 240
Review of Systems
-
History Source: Patient
All other systems: Reviewed and negative
Constitutional: Reports No Appetite (ISO pain) and Fatigue
Genitourinary: Reports Other (Endorses anal pain, similar to previous abscess)
Physical Exam
-
General: Well Nourished, Appears in Distress and Pain
HEENT: Normocephalic, Atraumatic and Moist Mucous Membranes
Respiratory: Clear to Auscultation
Cardiac: Regular Rhythm and S1/S2
GI: Soft and Nontender
Rectal: Deferred by Provider and Other (Covered in gauze)
Musculoskeletal: No Clubbing, No Cyanosis and No Edema
Skin: Warm and Dry
Neuro: AO x 3
Psych: Calm and Intact Judgement/Insight
--- NOTE | 2025-05-24 11:54 | CM ---
Spoke with resident who stated that patient may need IV ABX, however at this time it is not clear what his needs/meds will be. Will await further information.
Plan: Case management will continue to follow and assist with discharge planning. Home with IV ABX and homecare.
[2025-05-24] MEDS: ZENPEP DELAYED RELEASE CAPSULE PO (12:39)
--- NOTE | 2025-05-24 16:22 | W.IMMPOSTOP ---
Addendum entered and electronically signed by Colby Morales MD 05/24/25 16:29:
Updated patient's , Florinda.
Original Note:
Surgical Immed Post Op Note
-
Primary Surgeon: Jackie Morales MD
Assisting Surgeon: Kelsie Mcneal MD
Pre-op Diagnosis: perianal abscess
Post-op Diagnosis: perianal abscess
Procedure Performed: Incision and drainage perinanal abscess
Anesthesia Type: LMA plus local
Specimen / Cultures: none
Estimated Blood Loss: 10 cc
Complications: no immediate
Operative Findings: prior left posterior wound tracked to the right anterior perianal area--counterincision made there
1/2 inch Jeremiah placed connecting old wound and new counterincision.
Will send back to med surg.
--- NOTE | 2025-05-24 16:38 | W.PN.ID1 ---
Date of Service
Date of Service: May 24, 2025
Today's Communication
discussed with patient and
Assessment / Plan
1. CT imaging with fluid collection found left gluteal soft tissue with 2.4 x 3.2 x 6.7 cm collection of liquid/ gas suggestive of abscess with associated stranding in the left gluteal soft tissue ( incidental findings found enlarged spleen and
adrenal nodules)
With recurring pain new CT pelvis done showing new collection which was subsequently drained in OR this AM with intra-operative cultures sent
2. [place]-rectal surgery was consulted with surgery performed with drainage and packing with cultures pending from intra-operative specimen from this AM
3. Empiric antibiotic was started with Vancomycin and Merrem
4. Culture results are currently pending with targeted antibiotic to be provided when results available
5. The patient is currently afebrile with decreased leukocytosis
Thank you for calling ID consultation
The ID team will continue to follow with you
Please call u with any questions or concerns
Subjective / Review of Systems
Continued perianal pain with findings of new collection communicating with previous abscess . Patient returned to OR for re-draining of perianal abscess
Review of Systems: No Fever, No Chills, No Headache, No Pharyngitis, No Stiff Neck, No Swollen Lymph Nodes, No Cough, No Sputum Production, No Chest Pain, No Palpitations, Abdominal Pain, No Nausea, No Vomiting, No Diarrhea, No Dysuria, No Joint
Pain and No Skin Rash (continued fredrick-anal pain with occurance of new abscess which was subsequently drained)
Vital Signs / Physical Exam
Vital Signs
Vital Signs
Temp Pulse Resp BP Pulse Ox
97.6 F 54 11 111/58 99
05/24/25 07:10 05/24/25 16:30 05/24/25 16:30 05/24/25 16:30 05/24/25 16:30
Physical Exam
Constitutional: No Acute Distress, Well Developed, Acutely Ill, Non-toxic and Cachetic
Head: Normocephalic
Eyes: Pupils Equal, Pupils Round, No Conjunctival Hemorrhage and Sclera Anicteric
Oropharyngeal: Benign
Cardiovascular: Regular Rate
Pulmonary: Clear and Non Labored
Gastrointestinal: Soft, Non Tender and Non Distended (fredrick-anal pain/discomfort)
Skin: Warm and Dry
Neurological: Awake, Alert, Oriented, AO x 3 (gait not observed) and No Motor Deficits
Psychological: Calm (cooperative, conversant, pleasant,apprpriate)
Objective Data
Lab Data
Lab Results
05/24/25 05:20
05/22/25 14:27
Lactic Acid Cancelled 05/22/25 19:30
Total Bilirubin 1.4 mg/dl (0.2-1.3) H 05/22/25 14:27
AST 17 U/L (17-59) 05/22/25 14:27
ALT 15 U/L (0-50) 05/22/25 14:27
Alkaline Phosphatase 83 U/L (38-126) 05/22/25 14:27
Most recent labs reviewed.
Microbiology: Report Reviewed (will follow up repeat intra-operative cultures from today's surgery)
Micro Results:
05/22/25 15:18 Blood Culture - Preliminary
Blood/Venous No Growth in 48 hours- Final report to follow
05/22/25 15:18 Blood Culture - Preliminary
Blood/Venous No Growth in 48 hours- Final report to follow
05/24/25 10:00 MRSA Screen - Pending
Nose
05/22/25 18:17 Wound Culture - Preliminary
Abscess No growth
Gram Stain - Preliminary
CT Scan: Report Reviewed (New CT pelvis done this with results reviewed showng new collection with previous collection improved)
Care Review
Total Time Spent with Patient (in minutes): 35
--- NOTE | 2025-05-24 17:09 | PTCARENOTE ---
Received pt from procedure of incision and drainage perinanal abscess via bed. Rectal site assessed, CDI. No complaints of pain.
[2025-05-25 03:05] VITALS: BP 123/71
[2025-05-25] MEDS: VANCOCIN 150 IV ×2 (05:09→17:57)
[2025-05-25] MEDS: STERILE WATER FOR INJECTION 10 ML IV ×4 (05:11→22:03)
[2025-05-25] MEDS: MERREM 500 MG IV ×4 (05:11→22:04)
[2025-05-25 07:00] VITALS: BP 124/76
[2025-05-25 07:19] LABS: Hematocrit 39.3 % (39.0-52.0); Hemoglobin 13.5 g/dL (13.0-18.0); Mean Corp Hgb Conc. 34.4 g/dL (33.0-37.0); Mean Corpuscular Volume 85.4 fL (80.0-94.0); Platelet Count 115 10^3/uL (130-400); Red Cell Dist. Width 13.5 % (11.5-14.5)
[2025-05-25 07:32] LABS: Blood Urea Nitrogen 13 mg/dl (9-20); Estimated Creatinine Clearance 108 ml/min
[2025-05-25] MEDS: CRESTOR 20 MG PO (08:33)
[2025-05-25] MEDS: COREG 6.25 MG PO ×2 (08:33→22:02)
[2025-05-25] MEDS: LYRICA 200 MG PO ×3 (08:33→22:02)
[2025-05-25] MEDS: ZETIA 10 MG PO (08:34)
[2025-05-25] MEDS: PROTONIX 40 MG PO ×2 (08:34→22:03)
[2025-05-25] MEDS: COZAAR 50 MG PO (08:34)
[2025-05-25] MEDS: ZENPEP DELAYED RELEASE CAPSULE 2 CAPSULE PO ×3 (08:36→17:35)
[2025-05-25] MEDS: MIRALAX PO (08:39)
[2025-05-25] MEDS: SENOKOT-S 1 TABLET PO ×2 (08:39→17:35)
[2025-05-25] MEDS: ULTRAM 25 MG PO (08:47)
--- NOTE | 2025-05-25 09:21 | W.PN.UPDATE ---
Update Note
Progress Note Update
I saw and evaluated the patient. I reviewed the resident�s note and agree with findings and plan as documented in the resident�s note.
No new complaints.
Gen: NAD, AAOx3.
Eyes: EOMI, PERRLA, no scleral icterus.
Neck: supple.
CV: continues to remain RRR, +S1/S2, no m/r/g.
Resp: continues to remain CTAB, no rales, wheezes, or rhonchi.
Abd: continues to remain +BS, soft, NT, ND
Skin: No rashes.
Neuro: CN 2-12 intact
Psych: Normal mood and affect
05/22/25 15:18 Blood/Venous Blood Culture - Preliminary
No Growth in 48 hours- Final report to follow
05/22/25 15:18 Blood/Venous Blood Culture - Preliminary
No Growth in 48 hours- Final report to follow
05/22/25 18:17 Abscess Wound Culture - Preliminary
No growth
05/22/25 18:17 Abscess Gram Stain - Preliminary
CT A/P: straightening and edema within the inferior medial left gluteal soft tissues extending towards the perianum associated with 3.2 into 2.4 into 6.7 cm gas and fluid containing collection in the subcutaneous soft tissues consistent with
infection and abscess. Bilateral adrenal nodules measuring 2.7 cm on the right and 2.5 cm on the left. Colonic diverticulosis. Mild splenomegaly. Prior cholecystectomy.
CT Pelvis: Only a few tiny bubbles of air seen at the site of prior abnormal fluid collection suspicious for abscess in the left medial gluteal soft tissues in comparison to recent prior CT. Air is seen without air-fluid level within an approximate
1.9 x 3.4 x 1.0 cm area in the paramedian right perineum at least suspicious for an infectious process.
Sepsis (POA) due to perianal abscess:
-s/p I&D at bedside on admission
-follow WCx/BCxs
-CRS following
-s/p incision and drainage perinanal abscess in the OR on 05/24/25
-wound care
-leukocytosis has resolved
-cont Vanco/Meropenem
-ID following
Other problems:
CAD with h/o stents: cont Plavix/Zetia/statin
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
Mild thrombocytopenia, likely consumptive, trend
Pancreatic insufficiency: cont Creon
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
Tobacco abuse disorder: Cessation counseling
Incidental finding: Bilateral adrenal nodules
FULL/Lovenox
--- NOTE | 2025-05-25 10:45 | W.PN.HOSP.TC ---
Today's Communication/Plan
-
Regular diet s/p second I&D yesterday
Await abscess culture results for specific antibiotic guidance per ID, do not discharge prior
Assessment / Plan
Assessment / Plan
Dong is a 65-year-old man with a history of CAD s/p stents on Plavix, paroxysmal A-fib, history of pancreatitis with pancreatic insufficiency, diverticulosis, smoking cessation, and bilateral adrenal nodules for which he needs more workup outpatient
who presented to the ED on 05/22/2025 with pain in the rectal area found to have perianal abscess on exam and CT. He is s/p I&D with surgery on 05/22/2025 with CRS following. On 05/24/2025, he endorsed feeling a lump and new anal pain. CRS performed a
physical exam and ordered another CT pelvis with IV contrast ISO possible new perianal abscess versus perianal abscess reformation. CT Pelvis: Only a few tiny bubbles of air seen at the site of prior abnormal fluid collection suspicious for abscess
in the left medial gluteal soft tissues in comparison to recent prior CT. Air is seen without air-fluid level within an approximate 1.9 x 3.4 x 1.0 cm area in the paramedian right perineum at least suspicious for an infectious process. As such, he
had a second I&D on 05/24/2025.
#Perianal abscess s/p 2 I&D, 05/22/2025 and 05/24/2025
#Perianal pain
-CRS following s/p 2 CTs and 2 I&D's as above.
--Regular diet
-ID following, appreciate recs.
--Await wound cultures prior to DC and continue wound care.
--Continue IV vancomycin 750 mg twice daily and meropenem 500 mg every 6 hours for now.
#CAD s/p stents
-Continue home Plavix 75 mg p.o. daily, Zetia 10 mg p.o. daily, losartan 50 mg p.o. daily
#Paroxysmal A-fib
-Not on anticoagulation per his welder oxyhydrogen
#History of pancreatitis
#Pancreatic insufficiency
-Continue home Creon 2 capsules p.o. 3 times daily
#Bilateral adrenal nodules
These were incidental and seen on CT A/P 05/22/2025 and need further workup outpatient.
-Instructed patient to follow-up outpatient
#Nicotine dependence
-Continue cessation counseling
DVT prophylaxis: Lovenox
CODE STATUS: Full code
Anticipated Discharge: 24 - 48 hours (Until wound cultures are back and antibiotics can be specific)
Subjective/Interval History
-
Date of Service: May 25, 2025
-This morning, he is sitting at the edge of bed after finishing his breakfast. He reports feeling a lot better as s/p second I&D yesterday.
-He does not have any pain at the operative site, and endorses a great appetite today.
Objective Data
-
Labs:
Laboratory Results
05/25/25
06:44
WBC 9.4
Hgb 13.5
Hct 39.3
Plt Count 115 L
BUN 13
Creatinine 0.6 L
Vital Signs:
Vital Signs
Temp Pulse Resp BP Pulse Ox
97.6 F 67 19 124/76 97
05/25/25 07:00 05/25/25 08:33 05/25/25 07:00 05/25/25 08:34 05/25/25 07:00
I&O
05/24/25 05/25/25 05/26/25
06:59 06:59 06:59
Intake Total 1140 / 1140 1055 / 1055
Balance 1140 / 1140 1055 / 1055
--- NOTE | 2025-05-25 10:47 | W.PN.CRS1 ---
Today's Communication / Plan
-
wound care
antibiotics
d/c per hospitalist
Assessment/Plan
-
65-year-old male with PMH of A-fib, CAD, HLD, HTN, chronic pancreatitis who presented with perianal pain and WBC of 12, CT showing perianal abscess
POD 3 incision and drainage
POD 1 Incision and drainage perinanal abscess
AFVSS
WBC 9.4
� Okay for discharge later today from our perspective. Wound care discussed with patient.
� Sitz baths twice a day
- Stool softeners as needed
- Daily fiber supplement
� Continue antibiotics, follow-up cultures, appreciate ID
�Continue for DVT PPx with Lovenox
�Appreciate hospitalist
Subjective Data
Procedure
05/22/25- incision and drainage of perianal abscess
Subjective Data
Date of Service: May 25, 2025
Patient states he feels much better today. Denies any pain. Had some sweats last night but no fevers or chills. No complaints.
Objective Data
-
Vital Signs
Temp Pulse Resp BP Pulse Ox
97.6 F 67 19 124/76 97
05/25/25 07:00 05/25/25 08:33 05/25/25 07:00 05/25/25 08:34 05/25/25 07:00
Intake & Output
05/24/25 05/25/25 05/26/25
06:59 06:59 06:59
Intake Total 1140 / 1140 1055 / 1055
Balance 1140 / 1140 1055 / 1055
Intake:
Oral fluids 1140 / 1140 680 / 680
IV fluids (Total) 75 / 75
Normosol 75 / 75
IV piggybacks 300 / 300
Other:
Number of approximated MODERATE 1 1
amounts of urine
Number of approximated LARGE 1
amounts of urine
Lab Results
05/25/25 06:44
05/25/25 06:44
Physical Exam
-
General: No Acute Distress and AOx3
Abdomen: Soft, Non Distended and Non Tender
Skin: Warm and Dry
Wound: No Signs of Infection, Granulating Well, Dressing Changed and Other (george in place)
[2025-05-25 11:00] VITALS: BP 134/89
--- NOTE | 2025-05-25 11:34 | W.PN.ID1 ---
Date of Service
Date of Service: May 25, 2025
Today's Communication
patient awaiting culture results for final antibiotic suggestions
Assessment / Plan
1. CT imaging with fluid collection found left gluteal soft tissue with 2.4 x 3.2 x 6.7 cm collection of liquid/ gas suggestive of abscess with associated stranding in the left gluteal soft tissue ( incidental findings found enlarged spleen and
adrenal nodules)
With recurring pain new CT pelvis done showing new collection which was subsequently drained in OR this AM with intra-operative cultures sent
2. [facility]-rectal surgery was consulted with surgery performed with drainage and packing with cultures pending from intra-operative specimen
3. Empiric antibiotic was started with Vancomycin and Merrem//if MRSA screen Neg may D/C Vancomycin and switch to ceftriaxone/oral flagyl if pending abscess culture allows
4. Culture results are currently pending with targeted antibiotic to be provided when results available see above
5. The patient is currently afebrile without leukocytosis
Thank you for calling ID consultation
The ID team will continue to follow with you
Please call u with any questions or concerns
Chief Complaint
-: Other (continued anal pain POD#1 surgical re-drainage of perianal abscess)
Subjective / Review of Systems
Review of Systems: No Fever, No Chills, No Headache, No Pharyngitis, No Stiff Neck, No Swollen Lymph Nodes, No Cough, No Sputum Production, No Chest Pain, No Palpitations, No Abdominal Pain, No Nausea, No Vomiting, No Diarrhea, No Dysuria, No Joint
Pain and No Skin Rash
Vital Signs / Physical Exam
Vital Signs
Vital Signs
Temp Pulse Resp BP Pulse Ox
98.0 F 65 18 134/89 99
05/25/25 11:00 05/25/25 11:00 05/25/25 11:00 05/25/25 11:00 05/25/25 11:00
Physical Exam
Constitutional: No Acute Distress, Well Developed, Comfortable, Acutely Ill, Non-toxic and Cachetic
Head: Normocephalic
Eyes: Pupils Equal, Pupils Round, No Conjunctival Hemorrhage and Sclera Anicteric
Oropharyngeal: Benign
Cardiovascular: Regular Rate
Pulmonary: Clear and Non Labored
Gastrointestinal: Soft, Non Tender, Non Distended and Decreased Bowel Sounds
Extremities: Other (no edema with good ROM)
Skin: Warm and Dry
Wound: Other (using 'do-nut' pillow to ease rectal pain)
Neurological: Awake, Alert, Oriented, AO x 3 and No Motor Deficits
Psychological: Calm (conversant,cooperative, interactive, pleasant)
Objective Data
Lab Data
Lab Results
05/25/25 06:44
05/25/25 06:44
Estimated Creat Clear 108 ml/min 05/25/25 06:44
Lactic Acid Cancelled 05/22/25 19:30
Total Bilirubin 1.4 mg/dl (0.2-1.3) H 05/22/25 14:27
AST 17 U/L (17-59) 05/22/25 14:27
ALT 15 U/L (0-50) 05/22/25 14:27
Alkaline Phosphatase 83 U/L (38-126) 05/22/25 14:27
Most recent labs reviewed.
Microbiology: Report Reviewed
Micro Results:
05/22/25 15:18 Blood Culture - Preliminary
Blood/Venous No Growth in 48 hours- Final report to follow
05/22/25 15:18 Blood Culture - Preliminary
Blood/Venous No Growth in 48 hours- Final report to follow
05/24/25 10:00 MRSA Screen - Pending
Nose
05/22/25 18:17 Wound Culture - Preliminary
Abscess No growth
Gram Stain - Preliminary
CT Scan: Report Reviewed
Care Review
Total Time Spent with Patient (in minutes): 35
--- NOTE | 2025-05-25 12:34 | CM ---
Patient seen at bedside
Awaiting cultures, on antibiotics
discussed VN-does not feel he will need
PLAN: home, no needs anticipated, CM to continue to follow
--- NOTE | 2025-05-25 14:33 | PHA.VAN.FU ---
Addendum entered and electronically signed by Dori Ferrera [facility] 05/25/25 14:36:
BUN & SCR per protocol
Original Note:
Vancomycin Assessment / Plan
- Assessment
Renal Function: Stable
WBC's are: WNL
In the past 24 hrs, patient has been: Afebrile
Concomitant Antimicrobials: meropenem
- Dosing Plan
Continue: Vanc 750mg Q12H
- Monitoring Plan
Peak Level: 05/25 21:00
Trough Level: 05/26 05:30
Monitoring Comments: levels to be drawn after 6th maintenance dose
- Follow Up
Pharmacy will continue to follow.
Vancomycin Follow UP
- -
Patient Age: 65
Patient Sex: Male
Vancomycin Day #: 4
Indication: Gi / Intra-Abdominal
Requesting Provider: Young Sanchez / Dr. Gay
Pertinent Antimicrobial Allergies:
NKDA
Height / Weight:
Height 5 ft 5 in
Actual Weight 62.46 kg
- Vital Signs / Lab Results
Temp Pulse Resp BP Pulse Ox
98.0 F 65 18 134/89 99
05/25/25 11:00 05/25/25 11:00 05/25/25 11:00 05/25/25 11:00 05/25/25 11:00
Lab Results - Hematology
05/22/25 05/23/25 05/24/25
14:27 06:57 05:20
WBC 12.1 H 8.6 6.9
05/25/25
06:44
WBC 9.4
Lab Results - Chemistry
05/22/25 05/25/25
14:27 06:44
BUN 16 13
Creatinine 0.8 0.6 L
Estimated Creat Clear 108
Albumin 4.2
05/22/25 05/22/25
15:18 19:30
Lactic Acid 1.3 Cancelled
Microbiology Results
05/22/25 15:18 Blood Culture - Preliminary
Blood/Venous No Growth in 48 hours- Final report to follow
05/22/25 15:18 Blood Culture - Preliminary
Blood/Venous No Growth in 48 hours- Final report to follow
05/22/25 18:17 Wound Culture - Preliminary
Abscess No growth
Gram Stain - Preliminary
[2025-05-25 15:00] VITALS: BP 122/62
--- NOTE | 2025-05-25 16:21 | PTCARENOTE ---
pt's pain controlled with PRN Ultram, did sitz bath after dressing change this am, wound with granulation, independent in room and hallway, vss, will continue to monitor.
[2025-05-25 20:35] VITALS: BP 145/75
[2025-05-25 23:00] VITALS: BP 127/83
[2025-05-26 00:13] VITALS: BP 127/83
[2025-05-26] MEDS: MERREM 500 MG IV ×2 (04:06→10:21)
[2025-05-26] MEDS: STERILE WATER FOR INJECTION 10 ML IV ×2 (04:06→10:21)
[2025-05-26 06:44] LABS: Hematocrit 38.7 % (39.0-52.0); Hemoglobin 13.1 g/dL (13.0-18.0); Mean Corp Hgb Conc. 33.9 g/dL (33.0-37.0); Mean Corpuscular Volume 86.6 fL (80.0-94.0); Nucleated Red Blood Cells % 0 % (-); Platelet Count 130 10^3/uL (130-400); Red Cell Dist. Width 13.7 % (11.5-14.5)
[2025-05-26 06:56] LABS: Blood Urea Nitrogen 15 mg/dl (9-20); Calcium 9.1 mg/dl (8.4-10.2); Carbon Dioxide 28 mmol/L (22-30); Chloride 110 mmol/L (98-107); Estimated Creatinine Clearance 93 ml/min; Glucose 101 mg/dl (70-99); Magnesium 1.9 mg/dl (1.6-2.3); Potassium 4.3 mmol/L (3.5-5.1); Sodium 143 mmol/L (135-145); eGFR > 60.00
--- NOTE | 2025-05-26 07:23 | W.PN.HOSP.TC ---
Today's Communication/Plan
-
Awaiting abscess culture results for specific antibiotic guidance, continue IV vancomycin 750 mg twice daily and meropenem 500 mg every 6 hours
Infectious disease following.
Colorectal surgery following.
Assessment / Plan
Assessment / Plan
Dong is a 65-year-old man with a history of CAD s/p stents on Plavix, paroxysmal A-fib, history of pancreatitis with pancreatic insufficiency, diverticulosis, smoking cessation, and bilateral adrenal nodules for which he needs more workup outpatient
who presented to the ED on 05/22/2025 with pain in the rectal area found to have perianal abscess on exam and CT. He is s/p I&D with surgery on 05/22/2025 with CRS following. On 05/24/2025, he endorsed feeling a lump and new anal pain. CRS performed a
physical exam and ordered another CT pelvis with IV contrast ISO possible new perianal abscess versus perianal abscess reformation. CT Pelvis: Only a few tiny bubbles of air seen at the site of prior abnormal fluid collection suspicious for abscess
in the left medial gluteal soft tissues in comparison to recent prior CT. Air is seen without air-fluid level within an approximate 1.9 x 3.4 x 1.0 cm area in the paramedian right perineum at least suspicious for an infectious process. As such, he
had a second I&D on 05/24/2025.
#Perianal abscess s/p 2 I&D, 05/22/2025 and 05/24/2025
#Perianal pain
- Colorectal surgery following s/p 2 CTs and 2 I&D's as above.
- Leukocytosis has resolved.
- Continue regular diet
- ID following, appreciate recs.
- Continue wound care. Awaiting wound cultures prior to planning discharge.
- Continue IV vancomycin 750 mg twice daily and meropenem 500 mg every 6 hours for now.
#CAD s/p stents
- Continue home Plavix 75 mg p.o. daily, Zetia 10 mg p.o. daily, losartan 50 mg p.o. daily
# Mild thrombocytopenia
� Likely consumptive, trending
- 130 today 05/26/25, increased from 95 on 05/23/25.
#Paroxysmal A-fib
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
#History of pancreatitis
#Pancreatic insufficiency
-Continue home Creon 2 capsules p.o. 3 times daily
#Bilateral adrenal nodules
These were incidental and seen on CT A/P 05/22/2025 and need further workup outpatient.
-Instructed patient to follow-up outpatient
#Nicotine dependence
-Continue cessation counseling
DVT prophylaxis: Lovenox
CODE STATUS: Full code
Anticipated Discharge: 24 - 48 hours (Colorectal surgery to reevaluate patient, awaiting wound cultures.)
Subjective/Interval History
-
Date of Service: May 26, 2025
Patient states he feels another abscess forming in the right buttock. No other complaints.
Objective Data
-
Labs:
Laboratory Results
05/26/25
05:59
WBC 6.1
Hgb 13.1
Hct 38.7 L
Plt Count 130
Sodium 143
Potassium 4.3
Chloride 110 H
Carbon Dioxide 28
BUN 15
Creatinine 0.7
Glucose 101 H
Calcium 9.1
Vital Signs:
Vital Signs
Temp Pulse Resp BP Pulse Ox
98.9 F 99 18 127/83 97
05/25/25 23:00 05/25/25 23:00 05/25/25 23:00 05/25/25 23:00 05/25/25 23:00
I&O
05/25/25 05/26/25 05/27/25
06:59 06:59 06:59
Intake Total 1055 / 1055 2049
Balance 1055 / 1055 2049
Review of Systems
-
History Source: Patient
All other systems: Reviewed and negative
Constitutional: Reports No Symptoms
EENT: Reports No Symptoms Reported
Respiratory: Reports No Symptoms
Cardiac: Reports No Symptoms
Abdomen/GI: Reports No Symptoms
Breast: Reports No Symptoms
Genitourinary: Reports No Symptoms
Musculoskeletal: Reports No Symptoms
Neuro: Reports No Symptoms
Hematologic / Lymphatic: Reports No Symptoms
Allergy / Immunology: Reports No Symptoms
Physical Exam
-
General: Well Developed, Well Nourished, No Apparent Distress, Comfortable and Conversant
HEENT: Normocephalic, Atraumatic, Moist Mucous Membranes and Anicteric
Respiratory: Clear to Auscultation
Cardiac: Regular Rhythm and S1/S2
GI: Soft, Nontender, Nondistended and Normal Bowel Sounds
Musculoskeletal: No Clubbing, No Cyanosis and No Edema
Skin: Warm
Neuro: Awake and AO x 3
Hematologic / Lymphatic: No Lymphadenopathy
Psych: Calm
Data Reviewed
-
Labs: Labs Reviewed by me and Discussed with Physician
Old Records: Reviewed
--- NOTE | 2025-05-26 07:46 | PHA.VAN.FU ---
Vancomycin Assessment / Plan
- Assessment
Renal Function: Stable
WBC's are: WNL
In the past 24 hrs, patient has been: Afebrile
Concomitant Antimicrobials: MEROPENEM
- Assessment - Therapeutic Drug Monitoring
Extrapolated Cmax (mcg/mL): 16.1
Peak level was drawn: Appropriately
Extrapolated Cmin (mcg/mL): 7.9
Trough Drawn: Appropriately
Calculated AUC (mcg*h/mL): 304
Calculated ke: 0.0787
Calculated half life (H): 8.8
Calculated Vd (L): 62.73
Calculated Vanc CL (ml/min): 82.25
- Dosing Plan
Adjust Regimen to: vancomycin 1250 mg q12h
New Regimen Predicts: AUC, Peak (32.6), Trough (14.3)
- Monitoring Plan
No level(s) ordered at this time: consider levels in next few days
- Follow Up
Pharmacy will continue to follow.
Vancomycin Follow UP
- -
Patient Age: 65
Patient Sex: Male
Vancomycin Day #: 5
Indication: Gi / Intra-Abdominal
Requesting Provider: Young Sanchez / Dr. Gay
Pertinent Antimicrobial Allergies:
NKDA
Height / Weight:
Height 5 ft 5 in
Actual Weight 62.46 kg
- Vital Signs / Lab Results
Temp Pulse Resp BP Pulse Ox
98.9 F 99 18 127/83 97
05/25/25 23:00 05/25/25 23:00 05/25/25 23:00 05/25/25 23:00 05/25/25 23:00
Lab Results - Hematology
05/24/25 05/25/25 05/26/25
05:20 06:44 05:59
WBC 6.9 9.4 6.1
Lab Results - Chemistry
05/25/25 05/26/25
06:44 05:59
BUN 13 15
Creatinine 0.6 L 0.7
Estimated Creat Clear 108 93
Microbiology Results
05/22/25 15:18 Blood Culture - Preliminary
Blood/Venous No Growth in 72 hours- Final report to follow
05/22/25 15:18 Blood Culture - Preliminary
Blood/Venous No Growth in 72 hours- Final report to follow
05/24/25 10:00 MRSA Screen - Final
Nose No Methicillin Resistant Staphylococcus aureus isolated.
05/22/25 18:17 Wound Culture - Preliminary
Abscess No growth
Gram Stain - Preliminary
Therapeutic Drug Monitoring
Vancomycin Peak 16.1 ug/ml (18-26) L 05/25/25 20:56
Vancomycin Trough 7.9 ug/ml (5-20) 05/26/25 05:59
[2025-05-26] MEDS: VANCOCIN IV (07:53)
[2025-05-26] MEDS: VANCOCIN 275 MG IV (07:55)
[2025-05-26] MEDS: CRESTOR 20 MG PO (07:57)
[2025-05-26] MEDS: PROTONIX 40 MG PO ×2 (07:58→21:19)
[2025-05-26] MEDS: ZENPEP DELAYED RELEASE CAPSULE 2 CAPSULE PO ×3 (07:58→17:36)
[2025-05-26] MEDS: SENOKOT-S 1 TABLET PO ×2 (07:58→17:37)
[2025-05-26] MEDS: ZETIA 10 MG PO (07:58)
[2025-05-26] MEDS: COZAAR 50 MG PO (07:58)
[2025-05-26] MEDS: LYRICA 200 MG PO ×3 (07:58→21:19)
[2025-05-26] MEDS: MIRALAX 17 GRAMS PO (07:58)
[2025-05-26 08:00] VITALS: BP 150/79
[2025-05-26] MEDS: COREG PO (08:00)
[2025-05-26] MEDS: ULTRAM 25 MG PO ×2 (08:21→17:47)
--- NOTE | 2025-05-26 08:52 | W.PN.UPDATE ---
Update Note
Progress Note Update
I saw and evaluated the patient. I reviewed the resident�s note and agree with findings and plan as documented in the resident�s note.
Pt states he feels another perianal 'lump.'
Gen: NAD, AAOx3.
Eyes: EOMI, PERRLA, no scleral icterus.
Neck: supple.
CV: RRR, +S1/S2, no m/r/g.
Resp: CTAB, no rales, wheezes, or rhonchi.
Abd: +BS, soft, NT, ND
Skin: No rashes.
Neuro: CN 2-12 intact
Psych: Normal mood and affect
05/22/25 15:18 Blood/Venous Blood Culture - Preliminary
No Growth in 72 hours- Final report to follow
05/22/25 15:18 Blood/Venous Blood Culture - Preliminary
No Growth in 72 hours- Final report to follow
05/24/25 10:00 Nose MRSA Screen - Final
No Methicillin Resistant Staphylococcus aureus isolated.
05/22/25 18:17 Abscess Wound Culture - Preliminary
No growth
05/22/25 18:17 Abscess Gram Stain - Preliminary
CT A/P: straightening and edema within the inferior medial left gluteal soft tissues extending towards the perianum associated with 3.2 into 2.4 into 6.7 cm gas and fluid containing collection in the subcutaneous soft tissues consistent with
infection and abscess. Bilateral adrenal nodules measuring 2.7 cm on the right and 2.5 cm on the left. Colonic diverticulosis. Mild splenomegaly. Prior cholecystectomy.
CT Pelvis: Only a few tiny bubbles of air seen at the site of prior abnormal fluid collection suspicious for abscess in the left medial gluteal soft tissues in comparison to recent prior CT. Air is seen without air-fluid level within an approximate
1.9 x 3.4 x 1.0 cm area in the paramedian right perineum at least suspicious for an infectious process.
Sepsis (POA) due to perianal abscess:
-s/p I&D at bedside on admission
-follow WCx/BCxs (see above)
-CRS following
-s/p incision and drainage perinanal abscess in the OR on 05/24/25
-wound care
-leukocytosis has resolved
-cont Vanco/Meropenem as per ID
Other problems:
CAD with h/o stents: cont Plavix/Zetia/statin
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
Mild thrombocytopenia, likely consumptive, trend
Pancreatic insufficiency: cont Creon
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
Tobacco abuse disorder: Cessation counseling
Incidental finding: Bilateral adrenal nodules
FULL/Lovenox
--- NOTE | 2025-05-26 12:21 | W.PN.CRS1 ---
Today's Communication / Plan
-
Tentative OR tomorrow
Assessment/Plan
-
65-year-old male with PMH of A-fib, CAD, HLD, HTN, chronic pancreatitis who presented with perianal pain and WBC of 12, CT showing perianal abscess
POD 4 incision and drainage of perianal abscess
POD 2 Incision and drainage perianal abscess with george placement
AFVSS
No leukocytosis
New increasing tenderness to site
CX prelim with many gram +cocci and gram - rods
Plan:
� Continue diet through today, NPO after MN in case OR needed
� Sitz baths twice a day
- Stool softeners as needed
- Daily fiber supplement
� Continue antibiotics, follow-up cultures, appreciate ID
�Continue for DVT PPx with Lovenox
�Appreciate hospitalist
Subjective Data
Procedure
05/22/25- incision and drainage of perianal abscess
Subjective Data
Date of Service: May 26, 2025
Pt seen and examined at bedside with Dr. Morales. Tolerating diet. Passing stools and using sitz bath. Increasing tenderness to the perianal region.
Objective Data
-
Vital Signs
Temp Pulse Resp BP Pulse Ox
97.6 F 58 16 150/79 100
05/26/25 08:00 05/26/25 08:00 05/26/25 08:00 05/26/25 08:00 05/26/25 08:00
Intake & Output
05/25/25 05/26/25 05/27/25
06:59 06:59 06:59
Intake Total 1055 / 1055 2049
Balance 1055 / 1055 2049
Intake:
Oral fluids 680 / 680 1800 / 1800
IV fluids (Total) 75 / 75 250 / 250
Normosol 75 / 75
IV piggybacks 300 / 300
Other:
Number of approximated MODERATE 1 4
amounts of urine
Lab Results
05/26/25 05:59
05/26/25 05:59
Physical Exam
-
General: No Acute Distress and AOx3
Abdomen: Soft, Non Distended and Non Tender
Skin: Warm and Dry
Wound: Other (george in place, no palpable new induration or purulence at site but markedly tender)
--- NOTE | 2025-05-26 14:25 | W.PN.ID1 ---
Date of Service
Date of Service: May 26, 2025
Today's Communication
De-escalate to Unasyn.
Assessment / Plan
# Raiza-anal abscess
- s/p I+D 05/22 and 05/24
- To OR tomorrow for 3rd I+D ?new abscess vs residual abscess
- 05/22/25 Abscess gram stain: GPC, GNR; aerobic cx negative. Suspect anaerobes.
- DC Vancomycin and meropenem.
- De-escalate to Unasyn 3g IV q6h.
Chief Complaint
-: Other (continued anal pain POD#1 surgical re-drainage of perianal abscess)
Subjective / Review of Systems
c/o worsening perianal pain again today.
To OR tomorrow for I+D
Vital Signs / Physical Exam
Vital Signs
Vital Signs
Temp Pulse Resp BP Pulse Ox
97.6 F 58 16 150/79 100
05/26/25 08:00 05/26/25 08:00 05/26/25 08:00 05/26/25 08:00 05/26/25 08:00
Objective Data
Lab Data
Lab Results
05/26/25 05:59
05/26/25 05:59
Estimated Creat Clear 93 ml/min 05/26/25 05:59
Lactic Acid Cancelled 05/22/25 19:30
Total Bilirubin 1.4 mg/dl (0.2-1.3) H 05/22/25 14:27
AST 17 U/L (17-59) 05/22/25 14:27
ALT 15 U/L (0-50) 05/22/25 14:27
Alkaline Phosphatase 83 U/L (38-126) 05/22/25 14:27
Most recent labs reviewed.
Micro Results:
05/22/25 18:17 Wound Culture - Final
Abscess No growth
Gram Stain - Final
05/22/25 15:18 Blood Culture - Preliminary
Blood/Venous No Growth in 72 hours- Final report to follow
05/22/25 15:18 Blood Culture - Preliminary
Blood/Venous No Growth in 72 hours- Final report to follow
05/24/25 10:00 MRSA Screen - Final
Nose No Methicillin Resistant Staphylococcus aureus isolated.
05/24/25 CT pelvis: Only a few tiny bubbles of air seen at the site of prior abnormal fluid collection suspicious for abscess in the left medial gluteal soft tissues in comparison to recent prior CT. Air is seen without air-fluid level within an
approximate 1.9 x 3.4 x 1.0 cm area in the paramedian right perineum at least suspicious for an infectious process.
05/22/25 CT a/p: There is straightening and edema within the inferior medial left gluteal soft tissues extending towards the perineum with associated 3.2 x 2.4 x 6.7 cm gas and fluid containing collection in the subcutaneous soft tissues consistent
with infection and abscess formation. There are bilateral adrenal nodules measuring 2.7 cm on the right and 2.5 cm on the left. These nodules are incompletely characterized on this examination. If not previously evaluated a dedicated adrenal CT or
MRI may be considered for further evaluation.
[2025-05-26 14:53] VITALS: BP 126/61
[2025-05-26] MEDS: UNASYN IV ×2 (17:37→23:18)
[2025-05-26] MEDS: COREG 6.25 MG PO (21:20)
[2025-05-26 23:00] VITALS: BP 141/80
[2025-05-27] VITALS (10 sets, daily range): BP systolic 108–146; BP diastolic 59–82
[2025-05-27] MEDS: ULTRAM 25 MG PO (02:14)
[2025-05-27] MEDS: UNASYN IV ×4 (05:54→23:54)
[2025-05-27 06:02] LABS: Hematocrit 37.5 % (39.0-52.0); Hemoglobin 12.9 g/dL (13.0-18.0); Mean Corp Hgb Conc. 34.4 g/dL (33.0-37.0); Mean Corpuscular Volume 86.4 fL (80.0-94.0); Nucleated Red Blood Cells % 0 % (-); Platelet Count 137 10^3/uL (130-400); Red Cell Dist. Width 13.5 % (11.5-14.5)
[2025-05-27 06:08] LABS: Blood Urea Nitrogen 18 mg/dl (9-20); Calcium 9.0 mg/dl (8.4-10.2); Carbon Dioxide 28 mmol/L (22-30); Chloride 108 mmol/L (98-107); Estimated Creatinine Clearance 93 ml/min; Glucose 86 mg/dl (70-99); Magnesium 1.8 mg/dl (1.6-2.3); Potassium 4.5 mmol/L (3.5-5.1); Sodium 140 mmol/L (135-145); eGFR > 60.00
[2025-05-27] MEDS: SENOKOT-S 1 TABLET PO ×2 (07:45→16:14)
[2025-05-27] MEDS: PROTONIX 40 MG PO ×2 (07:45→20:18)
[2025-05-27] MEDS: LYRICA 200 MG PO ×3 (07:46→21:10)
[2025-05-27] MEDS: ZETIA 10 MG PO (07:46)
[2025-05-27] MEDS: COREG 6.25 MG PO ×2 (07:46→20:18)
[2025-05-27] MEDS: CRESTOR 20 MG PO (07:46)
[2025-05-27] MEDS: MIRALAX PO (07:47)
[2025-05-27] MEDS: COZAAR 50 MG PO (07:47)
[2025-05-27] MEDS: ZENPEP DELAYED RELEASE CAPSULE PO (07:48)
--- NOTE | 2025-05-27 08:21 | W.PN.CRS1 ---
Today's Communication / Plan
-
OR.
Assessment/Plan
-
POD 3 & 5.
Still with pain despite normal vitals and WBC. Will take back to OR this am for wound exploration/debridement. Risks/benefits discussed and he agrees to proceed.
Subjective Data
Procedure
05/22/25- incision and drainage of perianal abscess
05/24/25 repeat I and D
Subjective Data
Date of Service: May 27, 2025
Still with pain--about the same.
Objective Data
-
Vital Signs
Temp Pulse Resp BP Pulse Ox
97.3 F 56 19 125/72 98
05/27/25 07:00 05/27/25 07:00 05/27/25 07:00 05/27/25 07:00 05/27/25 07:00
Intake & Output
05/26/25 05/27/25 05/28/25
06:59 06:59 06:59
Intake Total 2049 780 / 780
Balance 2049 780 / 780
Intake:
Oral fluids 1800 / 1800 660 / 660
IV fluids (Total) 250 / 250
IV piggybacks 120 / 120
Other:
Number of approximated MODERATE 4 2
amounts of urine
Lab Results
05/27/25 05:20
05/27/25 05:20
Physical Exam
-
General: No Acute Distress
Chest: Clear
Cardiovascular: Regular Rate & Rhythm
Abdomen: Soft
Rectal: Other (unchanged--still some tenderness)
--- NOTE | 2025-05-27 08:56 | W.PN.HOSP.TC ---
Today's Communication/Plan
-
OR today, colorectal surgery following.
Continue Unasyn 3 g IV every 6 hours, infectious diseases following.
Assessment / Plan
Assessment / Plan
Dong is a 65-year-old man with a history of CAD s/p stents on Plavix, paroxysmal A-fib, history of pancreatitis with pancreatic insufficiency, diverticulosis, smoking cessation, and bilateral adrenal nodules for which he needs more workup outpatient
who presented to the ED on 05/22/2025 with pain in the rectal area found to have perianal abscess on exam and CT. He is s/p I&D with surgery on 05/22/2025 with CRS following. On 05/24/2025, he endorsed feeling a lump and new anal pain. CRS performed a
physical exam and ordered another CT pelvis with IV contrast ISO possible new perianal abscess versus perianal abscess reformation. CT Pelvis: Only a few tiny bubbles of air seen at the site of prior abnormal fluid collection suspicious for abscess
in the left medial gluteal soft tissues in comparison to recent prior CT. Air is seen without air-fluid level within an approximate 1.9 x 3.4 x 1.0 cm area in the paramedian right perineum at least suspicious for an infectious process. As such, he
had a second I&D on 05/24/2025.
#Perianal abscess s/p 2 I&D, 05/22/2025 and 05/24/2025
#Perianal pain
- Colorectal surgery following s/p 2 CTs and 2 I&D's as above. Tentative OR today 05/27/25 for incision and drainage.
- Leukocytosis has resolved.
- Continue regular diet
- Continue wound care.
- Aerobic culture negative, suspect anaerobes. Discontinue vanco/meropenem. Switch to Unasyn 3g IV q6h per ID recs.
#CAD s/p stents
- Continue home Plavix 75 mg p.o. daily, Zetia 10 mg p.o. daily, losartan 50 mg p.o. daily
# Mild thrombocytopenia
� Likely consumptive, trending
- 137 today 05/27/25, increased from 95 on 05/23/25.
#Paroxysmal A-fib
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
#History of pancreatitis
#Pancreatic insufficiency
-Continue home Creon 2 capsules p.o. 3 times daily
#Bilateral adrenal nodules
These were incidental and seen on CT A/P 05/22/2025 and need further workup outpatient.
Instructed patient to follow-up outpatient
#Nicotine dependence
-Continue cessation counseling
DVT prophylaxis: Lovenox
CODE STATUS: Full code
Anticipated Discharge: 24 - 48 hours
Subjective/Interval History
-
Date of Service: May 27, 2025
Patient has a new perianal wound forming on the right buttock, otherwise no new complaints. He states he is waiting to be taken to the OR this morning.
Objective Data
-
Labs:
Laboratory Results
05/27/25
05:20
WBC 6.4
Hgb 12.9 L
Hct 37.5 L
Plt Count 137
Sodium 140
Potassium 4.5
Chloride 108 H
Carbon Dioxide 28
BUN 18
Creatinine 0.7
Glucose 86
Calcium 9.0
Vital Signs:
Vital Signs
Temp Pulse Resp BP Pulse Ox
97.3 F 56 19 125/72 98
05/27/25 07:00 05/27/25 07:00 05/27/25 07:00 05/27/25 07:00 05/27/25 07:00
I&O
05/26/25 05/27/25 05/28/25
06:59 06:59 06:59
Intake Total 2049 780 / 780
Balance 2049 780 / 780
Review of Systems
-
History Source: Patient
All other systems: Reviewed and negative
Constitutional: Reports No Symptoms
EENT: Reports No Symptoms Reported
Respiratory: Reports No Symptoms
Cardiac: Reports No Symptoms
Abdomen/GI: Reports No Symptoms
Breast: Reports No Symptoms
Genitourinary: Reports No Symptoms
Musculoskeletal: Reports No Symptoms
Neuro: Reports No Symptoms
Endocrine: Reports No Symptoms
Hematologic / Lymphatic: Reports No Symptoms
Allergy / Immunology: Reports No Symptoms
Physical Exam
-
General: Well Developed, Well Nourished, No Apparent Distress, Comfortable and Conversant
HEENT: Normocephalic, Moist Mucous Membranes and Anicteric
Respiratory: Clear to Auscultation
Cardiac: Regular Rhythm and S1/S2
GI: Soft, Nontender, Nondistended and Normal Bowel Sounds
Musculoskeletal: No Clubbing, No Cyanosis and No Edema
Skin: Other (No rashes)
Neuro: Awake and AO x 3
Hematologic / Lymphatic: No Lymphadenopathy
Psych: Calm
Data Reviewed
-
Labs: Labs Reviewed by me and Discussed with Physician
Old Records: Reviewed
--- NOTE | 2025-05-27 09:50 | PTCARENOTE ---
0948 Pt down to OR via bed. Pt AAOX3. CHG bath completed on nights, new sheets on bed and nasal swab done.
--- NOTE | 2025-05-27 10:53 | W.IMMPOSTOP ---
Addendum entered and electronically signed by Colby Morales MD 06/05/25 12:56:
Clarification, excisional debridement was performed during this operation.
Addendum entered and electronically signed by Colby Morales MD 05/27/25 16:50:
Correction: R not L anterior wound tracking.
Original Note:
Surgical Immed Post Op Note
-
Primary Surgeon: Jackie Morales MD
Assisting Surgeon: none
Pre-op Diagnosis: perianal wound with pain
Post-op Diagnosis: same
Procedure Performed: 1) anorectal exam under anesthesia 2) wound exploration/sharp debridement/pulse lavage 3) [place] drain replacement
Anesthesia Type: LMA plus local
Specimen / Cultures: wound tissue for culture
Estimated Blood Loss: 20 cc
Complications: no immediate
Operative Findings: 1) left anterior wound tracking to anterior midline perineum with some ?tissue necrosis emulsified fat 2) hemorrhoids
Dressed with gauze.
Will send back to med surg and update his .
--- NOTE | 2025-05-27 12:16 | W.PN.ID1 ---
Date of Service
Date of Service: May 27, 2025
Today's Communication
Continue antibiotics.
Assessment / Plan
# Raiza-anal abscess
- s/p I+D 05/22, 05/24 and 05/27
- 05/22/25 Abscess gram stain: GPC, GNR; aerobic cx negative. Suspect anaerobes.
- Continue Unasyn 3g IV q6h.
Follow for clinical improvement
Chief Complaint
-: Other (Perirectal abscess)
Subjective / Review of Systems
Patient seen and examined. S/p I&D with Jeremiah drain placement earlier today. Patient reports feeling improved at this time.
Vital Signs / Physical Exam
Vital Signs
Vital Signs
Temp Pulse Resp BP Pulse Ox
98.0 F 61 17 134/60 97
05/27/25 11:30 05/27/25 11:30 05/27/25 11:30 05/27/25 11:30 05/27/25 11:30
Physical Exam
Constitutional: No Acute Distress, Comfortable and Non-toxic
Cardiovascular: Regular Rate and S1/S2; Negative S3/S4
Pulmonary: Clear; Negative Wheezes
Gastrointestinal: Soft and Non Tender
Neurological: Awake and Alert
Psychological: Calm
Objective Data
Lab Data
Lab Results
05/27/25 05:20
05/27/25 05:20
Estimated Creat Clear 93 ml/min 05/27/25 05:20
Lactic Acid Cancelled 05/22/25 19:30
Total Bilirubin 1.4 mg/dl (0.2-1.3) H 05/22/25 14:27
AST 17 U/L (17-59) 05/22/25 14:27
ALT 15 U/L (0-50) 05/22/25 14:27
Alkaline Phosphatase 83 U/L (38-126) 05/22/25 14:27
Most recent labs reviewed.
Micro Results:
05/27/25 10:35 Tissue Culture - Pending
Raiza-anal Gram Stain - Pending
05/22/25 15:18 Blood Culture - Preliminary
Blood/Venous No Growth in 4 days- Final report to follow
05/22/25 15:18 Blood Culture - Preliminary
Blood/Venous No Growth in 4 days- Final report to follow
05/22/25 18:17 Wound Culture - Final
Abscess No growth
Gram Stain - Final
05/24/25 10:00 MRSA Screen - Final
Nose No Methicillin Resistant Staphylococcus aureus isolated.
Imaging:
05/24/25 CT pelvis: Only a few tiny bubbles of air seen at the site of prior abnormal fluid collection suspicious for abscess in the left medial gluteal soft tissues in comparison to recent prior CT. Air is seen without air-fluid level within an
approximate 1.9 x 3.4 x 1.0 cm area in the paramedian right perineum at least suspicious for an infectious process.
05/22/25 CT a/p: There is straightening and edema within the inferior medial left gluteal soft tissues extending towards the perineum with associated 3.2 x 2.4 x 6.7 cm gas and fluid containing collection in the subcutaneous soft tissues consistent
with infection and abscess formation. There are bilateral adrenal nodules measuring 2.7 cm on the right and 2.5 cm on the left. These nodules are incompletely characterized on this examination. If not previously evaluated a dedicated adrenal CT or
MRI may be considered for further evaluation.
[2025-05-27] MEDS: ZENPEP DELAYED RELEASE CAPSULE 2 CAPSULE PO ×2 (13:11→18:04)
[2025-05-28 03:01] VITALS: BP 128/71
[2025-05-28] MEDS: UNASYN IV ×3 (05:23→17:38)
[2025-05-28 07:42] VITALS: BP 148/82
[2025-05-28 08:06] LABS: Hematocrit 41.9 % (39.0-52.0); Hemoglobin 14.0 g/dL (13.0-18.0); Mean Corp Hgb Conc. 33.4 g/dL (33.0-37.0); Mean Corpuscular Volume 88.0 fL (80.0-94.0); Nucleated Red Blood Cells % 0 % (-); Platelet Count 176 10^3/uL (130-400); Red Cell Dist. Width 13.6 % (11.5-14.5)
[2025-05-28 08:18] LABS: Blood Urea Nitrogen 16 mg/dl (9-20); Calcium 9.5 mg/dl (8.4-10.2); Carbon Dioxide 29 mmol/L (22-30); Chloride 107 mmol/L (98-107); Estimated Creatinine Clearance 93 ml/min; Glucose 133 mg/dl (70-99); Magnesium 1.9 mg/dl (1.6-2.3); Potassium 4.7 mmol/L (3.5-5.1); Sodium 142 mmol/L (135-145); eGFR > 60.00
[2025-05-28] MEDS: LYRICA 200 MG PO ×3 (08:41→21:19)
[2025-05-28] MEDS: COZAAR 50 MG PO (08:42)
[2025-05-28] MEDS: ZENPEP DELAYED RELEASE CAPSULE 2 CAPSULE PO ×3 (08:42→16:57)
[2025-05-28] MEDS: SENOKOT-S 1 TABLET PO ×2 (08:42→16:57)
[2025-05-28] MEDS: CRESTOR 20 MG PO (08:45)
[2025-05-28] MEDS: COREG 6.25 MG PO ×2 (08:45→21:19)
[2025-05-28] MEDS: PROTONIX 40 MG PO ×2 (08:45→21:19)
[2025-05-28] MEDS: MIRALAX 17 GRAMS PO (08:46)
[2025-05-28] MEDS: ZETIA 10 MG PO (08:46)
--- NOTE | 2025-05-28 08:58 | W.PN.HOSP.TC ---
Addendum entered and electronically signed by Reina Diana MD 05/28/25 12:43:
I saw and evaluated the patient independently. I reviewed the resident�s note and agree with findings and plan as documented by Dr. Durand.
GENERAL: well developed, well nourished, male in no apparent distress
HEENT: NC/AT
HEART: regular rate and rhythm, +S1, +S2
LUNGS : clear to auscultation bilaterally
ABDOM: soft, nontender, nondistended, + bowel sounds
EXT: no cyanosis, clubbing, or edema
NEUROLOGIC: grossly intact
Perianal abscess with pain s/p I&D, 05/22/2025, 05/24/2025, 05/27/25--apprec colorectal surgery--strongly suspecting anaerobes as cause--now on Unasyn--apprec ID --cont Sitz baths and current diet--CRS anticipates d/c tomorrow but need ID recs re: [id number]
( was on phone with him when we came into the room--asking about chronic abx suppression--indicated to her not appropriate at this time)
CAD s/p stents--cont plavix, zetia, losartan
Mild thrombocytopenia� Likely consumptive, trending- 176 today 05/28/25, increased from 95 on 05/23/25.
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
History of pancreatitis/Pancreatic insufficiency-Continue home Creon 2 capsules p.o. 3 times daily
Bilateral adrenal nodules--incidental and seen on CT A/P 05/22/2025 and need further workup outpatient.
Nicotine dependence-Continue cessation counseling
DVT proph-- Lovenox
CODE STATUS-- Full code
Original Note:
Today's Communication/Plan
-
Colorectal surgery following.
Continue Unasyn, ID following.
Assessment / Plan
Assessment / Plan
# Perianal abscess s/p 2 I&D, 05/22/2025, 05/24/2025, 05/27/25
# Perianal pain
- Colorectal surgery following s/p 2 CTs and 3 I&D's as above.
- Leukocytosis has resolved.
- Continue regular diet
- Continue wound care.
- Initial wound cultures did not show any growth. Switch to from vanco/meropenem Unasyn 3g IV q6h per ID recs.
- Follow repeat wound cultures, ID following.
# CAD s/p stents
- Continue home Plavix 75 mg p.o. daily, Zetia 10 mg p.o. daily, losartan 50 mg p.o. daily
# Mild thrombocytopenia
� Likely consumptive, trending
- 176 today 05/28/25, increased from 95 on 05/23/25.
# Paroxysmal A-fib
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
# History of pancreatitis
# Pancreatic insufficiency
-Continue home Creon 2 capsules p.o. 3 times daily
# Bilateral adrenal nodules
These were incidental and seen on CT A/P 05/22/2025 and need further workup outpatient.
Instructed patient to follow-up outpatient
# Nicotine dependence
-Continue cessation counseling
DVT prophylaxis: Lovenox
CODE STATUS: Full code
Anticipated Discharge: 24 - 48 hours
Subjective/Interval History
-
Date of Service: May 28, 2025
Patient states he is having bleeding around the site of the I&D that was performed yesterday. Colorectal surgery has yet to see him this morning. Otherwise, no new complaints.
Objective Data
-
Labs:
Laboratory Results
05/28/25
07:31
WBC 8.4
Hgb 14.0
Hct 41.9
Plt Count 176 D
Sodium 142
Potassium 4.7
Chloride 107
Carbon Dioxide 29
BUN 16
Creatinine 0.7
Glucose 133 H
Calcium 9.5
Vital Signs:
Vital Signs
Temp Pulse Resp BP Pulse Ox
97.4 F 62 18 148/82 99
05/28/25 07:42 05/28/25 08:45 05/28/25 07:42 05/28/25 07:42 05/28/25 07:42
I&O
05/27/25 05/28/25 05/29/25
06:59 06:59 06:59
Intake Total 780 / 780 1720 / 1720
Output Total 700 / 700
Balance 780 / 780 1020 / 1020
Review of Systems
-
History Source: Patient
Constitutional: Reports No Symptoms
EENT: Reports No Symptoms Reported
Respiratory: Reports No Symptoms
Cardiac: Reports No Symptoms
Abdomen/GI: Reports No Symptoms
Breast: Reports No Symptoms
Musculoskeletal: Reports No Symptoms
Neuro: Reports No Symptoms
Endocrine: Reports No Symptoms
Hematologic / Lymphatic: Reports No Symptoms
Allergy / Immunology: Reports No Symptoms
Physical Exam
-
General: Well Developed, Well Nourished, No Apparent Distress, Comfortable and Conversant
HEENT: Normocephalic, Atraumatic, Moist Mucous Membranes and Anicteric
Respiratory: Clear to Auscultation
Cardiac: Regular Rhythm and S1/S2
GI: Soft, Nontender, Nondistended and Normal Bowel Sounds
Musculoskeletal: No Clubbing, No Cyanosis and No Edema
Skin: Warm and Dry
Neuro: Awake and AO x 3
Psych: Calm and Intact Judgement/Insight
Data Reviewed
-
Labs: Labs Reviewed by me and Discussed with Physician
Old Records: Reviewed
--- NOTE | 2025-05-28 10:35 | W.PN.CRS1 ---
Today's Communication / Plan
-
sitz baths
antibiotics
pain control
Assessment/Plan
-
65-year-old male with PMH of A-fib, CAD, HLD, HTN, chronic pancreatitis who presented with perianal pain and WBC of 12, CT showing perianal abscess
POD 6 incision and drainage of perianal abscess
POD 4 Incision and drainage perianal abscess with george placement
POD 1 1) anorectal exam under anesthesia 2) wound exploration/sharp debridement/pulse lavage 3) George drain replacement
AFVSS
No leukocytosis
Vitals normal
Plan:
� Continue diet
� Sitz baths twice a day
- Stool softeners as needed
- Daily fiber supplement
� Continue antibiotics, follow-up cultures, appreciate ID
�Continue for DVT PPx with Lovenox
�Appreciate hospitalist
-Likely d/c tomorrow
Subjective Data
Procedure
05/22/25- incision and drainage of perianal abscess
05/24/25 repeat I and D
Subjective Data
Date of Service: May 28, 2025
Patient states he has some soreness but no true pain. He does not notice any more lumps developing. Tolerating a diet. He is afraid to have a bowel movement and is having some constipation.
Objective Data
-
Vital Signs
Temp Pulse Resp BP Pulse Ox
97.4 F 62 18 148/82 99
05/28/25 07:42 05/28/25 08:45 05/28/25 07:42 05/28/25 08:45 05/28/25 07:42
Intake & Output
05/27/25 05/28/25 05/29/25
06:59 06:59 06:59
Intake Total 780 / 780 1720 / 1720
Output Total 700 / 700
Balance 780 / 780 1020 / 1020
Intake:
Oral fluids 660 / 660 1380 / 1380
IV piggybacks 120 / 120 340 / 340
Output:
Urine, Voided 700 / 700
Other:
Number of approximated SMALL 2
amounts of urine
Number of approximated MODERATE 2 3
amounts of urine
Lab Results
05/28/25 07:31
05/28/25 07:31
Physical Exam
-
General: No Acute Distress and AOx3
Abdomen: Soft, Non Distended and Non Tender
Rectal: Other (rectal wound c/d/i, george drain in place)
Skin: Warm and Dry
[2025-05-28 11:00] VITALS: BP 152/74
--- NOTE | 2025-05-28 12:21 | CM ---
Patient seen at bedside
ambulating in halls
Cont on IV Unasyn
PLAN: home, no needs anticipated, CM to continue to follow
--- NOTE | 2025-05-28 13:29 | W.PN.ID1 ---
Date of Service
Date of Service: May 28, 2025
Today's Communication
Continue antibiotics.
Assessment / Plan
# Raiza-anal abscess
- s/p I+D 05/22, 05/24 and 05/27
- 05/22/25 Abscess gram stain: GPC, GNR; aerobic cx negative. Suspect anaerobes.
- Continue Unasyn 3g IV q6h. Likely transition to oral Augmentin 875 mg BID at discharge.
Follow for clinical improvement
����������������������������������������������������������
Chief Complaint
-: Other (Perirectal abscess)
Subjective / Review of Systems
Review of Systems: No Fever and No Chills
Vital Signs / Physical Exam
Vital Signs
Vital Signs
Temp Pulse Resp BP Pulse Ox
97.6 F 57 19 152/74 98
05/28/25 11:00 05/28/25 11:00 05/28/25 11:00 05/28/25 11:00 05/28/25 11:00
Physical Exam
Constitutional: No Acute Distress, Comfortable and Non-toxic
Cardiovascular: Regular Rate and S1/S2; Negative S3/S4
Pulmonary: Clear; Negative Wheezes
Gastrointestinal: Soft and Non Tender
Neurological: Awake and Alert
Psychological: Calm
Objective Data
Lab Data
Lab Results
05/28/25 07:31
05/28/25 07:31
Estimated Creat Clear 93 ml/min 05/28/25 07:31
Lactic Acid Cancelled 05/22/25 19:30
Total Bilirubin 1.4 mg/dl (0.2-1.3) H 05/22/25 14:27
AST 17 U/L (17-59) 05/22/25 14:27
ALT 15 U/L (0-50) 05/22/25 14:27
Alkaline Phosphatase 83 U/L (38-126) 05/22/25 14:27
Most recent labs reviewed.
Micro Results:
05/27/25 10:35 Tissue Culture - Preliminary
Raiza-anal Gram Stain - Preliminary
05/22/25 15:18 Blood Culture - Final
Blood/Venous No Growth - Final Report
05/22/25 15:18 Blood Culture - Final
Blood/Venous No Growth - Final Report
05/22/25 18:17 Wound Culture - Final
Abscess No growth
Gram Stain - Final
05/24/25 10:00 MRSA Screen - Final
Nose No Methicillin Resistant Staphylococcus aureus isolated.
Imaging:
05/24/25 CT pelvis: Only a few tiny bubbles of air seen at the site of prior abnormal fluid collection suspicious for abscess in the left medial gluteal soft tissues in comparison to recent prior CT. Air is seen without air-fluid level within an
approximate 1.9 x 3.4 x 1.0 cm area in the paramedian right perineum at least suspicious for an infectious process.
05/22/25 CT a/p: There is straightening and edema within the inferior medial left gluteal soft tissues extending towards the perineum with associated 3.2 x 2.4 x 6.7 cm gas and fluid containing collection in the subcutaneous soft tissues consistent
with infection and abscess formation. There are bilateral adrenal nodules measuring 2.7 cm on the right and 2.5 cm on the left. These nodules are incompletely characterized on this examination. If not previously evaluated a dedicated adrenal CT or
MRI may be considered for further evaluation.
[2025-05-28 15:00] VITALS: BP 115/63
[2025-05-28 23:28] VITALS: BP 140/63
[2025-05-29] MEDS: UNASYN IV ×3 (00:48→12:14)
[2025-05-29 06:57] LABS: Hematocrit 39.8 % (39.0-52.0); Hemoglobin 13.3 g/dL (13.0-18.0); Mean Corp Hgb Conc. 33.4 g/dL (33.0-37.0); Mean Corpuscular Volume 87.7 fL (80.0-94.0); Nucleated Red Blood Cells % 0 % (-); Platelet Count 151 10^3/uL (130-400); Red Cell Dist. Width 13.6 % (11.5-14.5)
[2025-05-29 07:20] LABS: Blood Urea Nitrogen 19 mg/dl (9-20); Calcium 8.8 mg/dl (8.4-10.2); Carbon Dioxide 27 mmol/L (22-30); Chloride 108 mmol/L (98-107); Estimated Creatinine Clearance 93 ml/min; Glucose 86 mg/dl (70-99); Magnesium 2.0 mg/dl (1.6-2.3); Potassium 4.6 mmol/L (3.5-5.1); Sodium 142 mmol/L (135-145); eGFR > 60.00
[2025-05-29 07:41] VITALS: BP 144/76
[2025-05-29] MEDS: LYRICA 200 MG PO (08:32)
[2025-05-29] MEDS: MIRALAX PO ×2 (08:32→08:55)
[2025-05-29] MEDS: SENOKOT-S PO ×2 (08:32→08:55)
[2025-05-29] MEDS: ZETIA 10 MG PO (08:33)
[2025-05-29] MEDS: CRESTOR 20 MG PO (08:33)
[2025-05-29] MEDS: ZENPEP DELAYED RELEASE CAPSULE 2 CAPSULE PO ×2 (08:33→12:15)
[2025-05-29] MEDS: PROTONIX 40 MG PO (08:34)
[2025-05-29] MEDS: COREG PO (08:39)
[2025-05-29] MEDS: COZAAR 50 MG PO (08:39)
--- NOTE | 2025-05-29 10:41 | W.PN.ID1 ---
Date of Service
Date of Service: May 29, 2025
Today's Communication
Continue antibiotics.
Assessment / Plan
# Raiza-anal abscess
- s/p I+D 05/22, 05/24 and 05/27
- 05/22/25 Abscess gram stain: Enterococcus species and other strep species, GNR; aerobic cx negative. Suspect anaerobes.
--> Continue Unasyn 3g IV q6h while inpatient. Transition to oral Augmentin 875 mg BID at discharge to continue for an additional 7 to 10 days.
����������������������������������������������������������
Chief Complaint
-: Other (Perirectal abscess)
Subjective / Review of Systems
Patient seen and examined. Reports feeling well. No difficulty with antibiotics.
Vital Signs / Physical Exam
Vital Signs
Vital Signs
Temp Pulse Resp BP Pulse Ox
97.5 F 55 16 144/76 96
05/29/25 07:41 05/29/25 08:39 05/29/25 07:41 05/29/25 08:39 05/29/25 07:41
Physical Exam
Constitutional: No Acute Distress, Comfortable and Non-toxic
Cardiovascular: Regular Rate and S1/S2; Negative S3/S4
Pulmonary: Clear; Negative Wheezes
Gastrointestinal: Soft and Non Tender
Neurological: Awake and Alert
Psychological: Calm
Objective Data
Lab Data
Lab Results
05/29/25 05:52
05/29/25 05:52
Estimated Creat Clear 93 ml/min 05/29/25 05:52
Lactic Acid Cancelled 05/22/25 19:30
Total Bilirubin 1.4 mg/dl (0.2-1.3) H 05/22/25 14:27
AST 17 U/L (17-59) 05/22/25 14:27
ALT 15 U/L (0-50) 05/22/25 14:27
Alkaline Phosphatase 83 U/L (38-126) 05/22/25 14:27
Most recent labs reviewed.
Micro Results:
05/27/25 10:35 Tissue Culture - Preliminary
Raiza-anal Enterococcus species
Gram Stain - Preliminary
05/22/25 15:18 Blood Culture - Final
Blood/Venous No Growth - Final Report
05/22/25 15:18 Blood Culture - Final
Blood/Venous No Growth - Final Report
05/22/25 18:17 Wound Culture - Final
Abscess No growth
Gram Stain - Final
05/24/25 10:00 MRSA Screen - Final
Nose No Methicillin Resistant Staphylococcus aureus isolated.
Imaging:
05/24/25 CT pelvis: Only a few tiny bubbles of air seen at the site of prior abnormal fluid collection suspicious for abscess in the left medial gluteal soft tissues in comparison to recent prior CT. Air is seen without air-fluid level within an
approximate 1.9 x 3.4 x 1.0 cm area in the paramedian right perineum at least suspicious for an infectious process.
05/22/25 CT a/p: There is straightening and edema within the inferior medial left gluteal soft tissues extending towards the perineum with associated 3.2 x 2.4 x 6.7 cm gas and fluid containing collection in the subcutaneous soft tissues consistent
with infection and abscess formation. There are bilateral adrenal nodules measuring 2.7 cm on the right and 2.5 cm on the left. These nodules are incompletely characterized on this examination. If not previously evaluated a dedicated adrenal CT or
MRI may be considered for further evaluation.
--- NOTE | 2025-05-29 10:59 | W.PN.CRS1 ---
Today's Communication / Plan
-
okay for d/c from our standpoint
finish course of abx
Assessment/Plan
-
65-year-old male with PMH of A-fib, CAD, HLD, HTN, chronic pancreatitis who presented with perianal pain and WBC of 12, CT showing perianal abscess
POD 7 incision and drainage of perianal abscess
POD 5 Incision and drainage perianal abscess with george placement
POD 2 anorectal exam under anesthesia, wound exploration/sharp debridement/pulse lavage, George drain replacement
AFVSS
No leukocytosis
Vitals normal
Plan:
� Continue diet
� Sitz baths twice a day
- Stool softeners as needed
- Daily fiber supplement
� Continue antibiotics, follow-up cultures, appreciate ID
�Continue for DVT PPx with Lovenox
�Appreciate hospitalist
-Okay for discharge from our standpoint. Follow up in the office in [address] Morales for a wound check.
Subjective Data
Procedure
05/22/25- incision and drainage of perianal abscess
05/24/25 repeat I and D
Subjective Data
Date of Service: May 29, 2025
Patient states he feels well. He has no complaints. Denies nausea or vomiting. Pain is controlled.
Objective Data
-
Vital Signs
Temp Pulse Resp BP Pulse Ox
97.5 F 55 16 144/76 96
05/29/25 07:41 05/29/25 08:39 05/29/25 07:41 05/29/25 08:39 05/29/25 07:41
Intake & Output
05/28/25 05/29/25 05/30/25
06:59 06:59 06:59
Intake Total 1720 / 1720 1321 / 1321
Output Total 700 / 700
Balance 1020 / 1020 1321 / 1321
Intake:
Oral fluids 1380 / 1380 1081 / 1081
IV piggybacks 340 / 340 240 / 240
Output:
Urine, Voided 700 / 700
Other:
Number of approximated SMALL 2
amounts of urine
Number of approximated MODERATE 3 3
amounts of urine
Lab Results
05/29/25 05:52
05/29/25 05:52
Physical Exam
-
General: No Acute Distress and AOx3
Abdomen: Soft, Non Distended and Non Tender
Wound: No Signs of Infection, Granulating Well and Other (george in place)
--- NOTE | 2025-05-29 13:55 | W.PN.HOSP.TC ---
Addendum entered and electronically signed by Reina Diana MD 05/29/25 14:54:
I saw and evaluated the patient independently. I reviewed the resident�s note and agree with findings and plan as documented by Dr. Cordero.
GENERAL: well developed, well nourished, male in no apparent distress
HEENT: NC/AT
HEART: regular rate and rhythm, +S1, +S2
LUNGS : clear to auscultation bilaterally
ABDOM: soft, nontender, nondistended, + bowel sounds
EXT: no cyanosis, clubbing, or edema
NEUROLOGIC: grossly intact
Perianal abscess with pain s/p I&D, 05/22/2025, 05/24/2025, 05/27/25--apprec colorectal surgery--strongly suspecting anaerobes as cause--now on Unasyn--apprec ID --cont Sitz baths and current diet--changing to Augmentin at d/c for 10 more days
CAD s/p stents--cont plavix, zetia, losartan
Mild thrombocytopenia� Likely consumptive--improved
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
History of pancreatitis/Pancreatic insufficiency--Continue home Creon 2 capsules p.o. 3 times daily
Bilateral adrenal nodules--incidental and seen on CT A/P 05/22/2025 and need further workup outpatient.
Nicotine dependence-Continue cessation counseling
DVT proph-- Lovenox
CODE STATUS-- Full code
OK for D/C
Original Note:
Today's Communication/Plan
-
Follow-up with [facility] outpatient in 2 weeks
Follow-up with PCP within a week for this hospitalization and bilateral adrenal nodules
Take Augmentin 875 mg twice daily for 10 days with last dose on 06/08/2025
Assessment / Plan
Assessment / Plan
# Perianal abscess s/p 3 I&D, 05/22/2025, 05/24/2025, 05/27/25
# Perianal pain
- Colorectal surgery following s/p 2 CTs and 3 I&D's as above.
--OK to DC from their standpoint with follow-up in 2 weeks and wound care as directed and discharge instructions.
- Leukocytosis has resolved.
- Continue regular diet
- Continue wound care.
- Initial and repeat wound cultures did not show any growth.
- ID following:
--S/p vanco/meropenem, followed by Unasyn 3g IV q6h per ID
--Rec to discharge on p.o. Augmentin 875 mg twice daily for 10 days.
# CAD s/p stents
- Continue home Plavix 75 mg p.o. daily, Zetia 10 mg p.o. daily, losartan 50 mg p.o. daily
# Mild thrombocytopenia
� Likely consumptive, trending
- 176 today 05/28/25, increased from 95 on 05/23/25.
# Paroxysmal A-fib
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
# History of pancreatitis
# Pancreatic insufficiency
-Continue home Creon 2 capsules p.o. 3 times daily
# Bilateral adrenal nodules
These were incidental and seen on CT A/P 05/22/2025 and need further workup outpatient.
- Patient aware and instructed to follow-up outpatient. This is also reiterated in discharge instructions.
# Nicotine dependence
-Continue cessation counseling
DVT prophylaxis: Lovenox
CODE STATUS: Full code
Anticipated Discharge: Today
Subjective/Interval History
-
Date of Service: May 29, 2025
-This morning, he reports of some soreness at the I&D site and passing a bowel movement without any blood or tearing. He feels ready to go home.
Objective Data
-
Labs:
Laboratory Results
05/29/25
05:52
WBC 5.3
Hgb 13.3
Hct 39.8
Plt Count 151
Sodium 142
Potassium 4.6
Chloride 108 H
Carbon Dioxide 27
BUN 19
Creatinine 0.7
Glucose 86
Calcium 8.8
Vital Signs:
Vital Signs
Temp Pulse Resp BP Pulse Ox
97.5 F 55 16 144/76 96
05/29/25 07:41 05/29/25 08:39 05/29/25 07:41 05/29/25 08:39 05/29/25 07:41
I&O
05/28/25 05/29/25 05/30/25
06:59 06:59 06:59
Intake Total 1720 / 1720 1321 / 1321
Output Total 700 / 700
Balance 1020 / 1020 1321 / 1321
Review of Systems
-
History Source: Patient
All other systems: Reviewed and negative
Genitourinary: Reports Other (Pain at I&D site)
Physical Exam
-
General: Well Developed, Well Nourished, No Apparent Distress, Comfortable and Conversant
HEENT: Normocephalic, Atraumatic and Moist Mucous Membranes
Respiratory: Clear to Auscultation and Non Labored Respirations
Cardiac: Regular Rhythm and S1/S2
GI: Soft, Nontender and Nondistended
Rectal: Deferred by Provider (Assessed by CRS, I&D site covered in dressing)
Musculoskeletal: No Clubbing, No Cyanosis and No Edema
Skin: Warm and Dry
Neuro: AO x 3
Psych: Calm and Intact Judgement/Insight
[2025-05-29 14:03] VITALS: BP 151/88
--- NOTE | 2025-05-29 14:14 | CM ---
Patient seen at bedside with physicians. Patient for discharge home today with family. Patient with no needs at this time. CM will continue to follow for discharge planning needs.
Plan; home with no needs.
--- NOTE | 2025-05-29 15:22 | W.DCSUMMARY ---
Addendum entered and electronically signed by Reina Diana MD 05/29/25 15:53:
Read, reviewed, and agree. See same day progress note for additional details. Time spent coordinating care, DC planning, review of DC plan of care with resident, transition of care, review of records in EMR, med rec, consults, notes, d/w
consultants, nursing, family, and CM = 33 minutes.
Wound culture from 05/27/2025 shows Enterococcus species with sensitivities not yet resulted. For now, continue Augmentin as recommended by ID.
Original Note:
Discharge Summary
Discharge Data
Date of Admission: 05/22/25
Date of Discharge: 05/29/25
-
Pending Results: No
Hospital Course
Discharging Physician : Annetta Cordero MD/MARCOS
Disposition : Home
Principal Discharge diagnosis : Perianal abscess x 3 s/p 3 I&D's
Hospital Course : 65-year-old man with a history of CAD s/p stents on Plavix, paroxysmal A-fib, history of pancreatitis with pancreatic insufficiency, diverticulosis, smoking cessation, and bilateral adrenal nodules for which he needs more workup
outpatient who presented to the ED on 05/22/2025 with pain in the rectal area found to have perianal abscess on exam and CT. Colorectal surgery was consulted and had an I&D on 05/22/2025 without complications. His hospital course was complicated by
recurrent perianal abscesses, 1 on 05/24/2025 and 1 on 05/27/2025, both requiring separate I&D's on the same dates. Infectious disease was involved throughout his care at the hospital and had him on IV vancomycin 750 mg twice daily and oral meropenem
500 mg every 6 hours. His initial and repeat wound cultures did not show any growth. He was transition to IV Unasyn 3 g every 6 hours and discharged on p.o. Augmentin 875 mg twice daily for 10 days (05/30/2025-06/08/2025). He was instructed to
follow-up with colorectal surgery in 2 weeks and his PCP within a week. Of note, his CT had an incidental finding of bilateral adrenal nodules. He was instructed to follow-up outpatient for these. His hospital course by problem list below:
# Perianal abscess s/p 3 I&D, 05/22/2025, 05/24/2025, 05/27/25
# Perianal pain
- Colorectal surgery following s/p 2 CTs and 3 I&D's as above.
--Follow-up in 2 weeks and continue wound care as instructed.
- Continue regular diet.
- ID following:
--S/p Vanco/meropenem, then Unasyn. Rec to DC on Augmentin 875 mg twice daily for 10 days.
# Bilateral adrenal nodules
These were incidental and seen on CT A/P 05/22/2025 and need further workup outpatient.
- Patient aware and instructed to follow-up outpatient.
His chronic problems were managed with home medications and without complications.
Important imaging findings :
Abdomen/pelvis CT 05/22/2025:
There is straightening and edema within the inferior medial left gluteal soft tissues extending towards the perineum with associated 3.2 x 2.4 x 6.7 cm gas and fluid containing collection in the subcutaneous soft tissues consistent with infection
and abscess formation.
There are bilateral adrenal nodules measuring 2.7 cm on the right and 2.5 cm on the left. These nodules are incompletely characterized on this examination. If not previously evaluated a dedicated adrenal CT or MRI may be considered for further
evaluation.
Colonic diverticulosis.
Prior cholecystectomy.
Mild splenomegaly.
Pelvis CT 05/24/2025:
Only a few tiny bubbles of air seen at the site of prior abnormal fluid collection suspicious for abscess in the left medial gluteal soft tissues in comparison to recent prior CT.
Air is seen without air-fluid level within an approximate 1.9 x 3.4 x 1.0 cm area in the paramedian right perineum at least suspicious for an infectious process.
Discharge Plan
-
Patient Disposition: Home (Routine Discharge)
Discharge Diagnosis/Procedures: Perianal Abscess s/p 3 I&Ds
Condition: Good
Diet: No restrictions
Activity: As tolerated
Driving Restrictions: As prior to admission
Bathing Restrictions: as per surgery
Blood Work: CBC w/ diff & CMP within a week
Others Tests: Bilateral adrenal nodules; need to follow up with your PCP within 2 weeks
Other Services: VN
Wound Care: Wear gauze over wound to protect your underwear.
Sitz baths twice a day, warm water, 10 minutes, for one week.
Stool softeners as needed.
Brewster drain to remain in place until evaluated at the office appointment.
Activity Restrictions/Additional Instructions:
You need to follow-up with your primary care physician within 2 weeks to address your bilateral adrenal nodules.
Instructions: How to take a sitz bath
Referrals:
Colby Morales MD [Active, ColoRectal] - in two weeks
Dwayne Schmitz MD [Family Provider, Family Practice] - in one to two weeks
Referral Note: Please follow-up about this hospitalization and bilateral adrenal nodules found on CT.
Additional Discharge Medication Instructions: Call the colorectal office to schedule the appointment.
Take Amoxicillin-pot Clavulanate (Augmentin) 875mg twice daily as instructed for 10 days, starting 05/30/25 and with last dose on 06/08/25.
Prescriptions:
New
amoxicillin-pot clavulanate 875-125 mg tablet
1 tab PO BID Qty: 20 0RF
Continued
losartan 50 mg Tablet
50 mg PO DAILY
carvedilol [Coreg] 6.25 mg Tablet
6.25 mg PO BID
clopidogrel [Plavix] 75 mg Tablet
75 mg PO DAILY
ezetimibe [Zetia] 10 mg Tablet
10 mg PO DAILY
rosuvastatin 20 mg Tablet
20 mg PO DAILY
pregabalin [Lyrica] 200 mg Capsule
200 mg PO TID
Patient Comments:
05/24/25: filled 6/13/25: pregabalin 270 capsules/90 day supply at [facility] - Dr. Wendy Ortiz
omeprazole 20 mg Tablet,Delayed Release (Dr/Ec)
20 mg PO BID
Creon 24,000-76,000 -120,000 unit Capsule,Delayed Release(Dr/Ec)
2 cap PO TID
cyanocobalamin (vitamin B-12) 1,000 mcg Tablet
1,000 mcg PO DAILY
folic acid 1 mg tablet
1 mg PO DAILY
Caltrate 600 plus D 600 mg-20 mcg (800 unit) Tablet,Chewable
1 tab PO DAILY
Discharge Orders:
Discharge Patient (As Directed); Ordered 05/29/25
Ordered By: Annetta Cordero
Discharge Date and Time
Discharge Date/Time: 05/29/25 15:13
Print Language: BELGIAN
--- NOTE | 2025-06-04 10:16 | PN.CDI ---
CDI
- -
CDI:
Physician Documentation Request
Admit Date: 05/22/25 18:35
Dear Doctor Andrew,
Please review the following and provide your response in the progress notes.
Clinical Indicators:
- 05/27 Operational Report indicates debridement without further specificity
- 'there was some necrotic tissue noted. This was debrided out sharply'
- 'mainly subcutaneous fat. I debrided it back to healthy tissue'
Could you provide, in the progress notes further clarification regarding the debridement.
Please specify the type of debridement performed:
1. Excisional Debridement - defined as removal by excision of devitalized tissue, necrosis or slough
2. Non-excisional debridement - defined as removal of devitalized tissue, necrosis or slough by such methods as irrigation, brushing, scrubbing or washing.
Use of terms such as suspected, likely, concern for, or probable (associated with a specific diagnosis that is being evaluated, monitored, or treated as if it exists) are acceptable and can be coded in the inpatient setting, when documented at the
time of discharge.
Thank you,
Ashley Moreno RN
CDI Specialist
Please use your independent medical judgment in providing your response.
== END 2025-05-29 15:13 | disposition home or self-care (01) | DRG 348 ==
LOC: 3 WEST ACU 18:35
PROVIDERS: Emergency Medicine; Physician Assistant; Registered Nurse; ADMITTING PHYSICIAN Hospitalist; ATTENDING PHYSICIAN Internal Medicine; CONSULT PHYSICIAN Surgery; EMERGENCY PHYSICIAN Emergency Medicine; FAMILY PHYSICIAN Family Medicine; OTHER PHYSICIAN Hospitalist
PROC: 0D9Q0ZZ Drainage of Anus, Open Approach (ICD-10-PCS; 2025-05-22)
PROC: 0JBB0ZZ Excision of Perineum Subcutaneous Tissue and Fascia, Open Approach (ICD-10-PCS; 2025-05-27)
PROC: 0JDB0ZZ Extraction of Perineum Subcutaneous Tissue and Fascia, Open Approach (ICD-10-PCS; 2025-05-27)
DX: K61.2 Anorectal abscess (principal); I96 Gangrene, not elsewhere classified; K86.1 Other chronic pancreatitis; K64.9 Unspecified hemorrhoids; I48.0 Paroxysmal atrial fibrillation; F17.200 Nicotine dependence, unspecified, uncomplicated; E27.8 Other specified disorders of adrenal gland; K57.30 Diverticulosis of large intestine without perforation or abscess without bleeding; Z90.49 Acquired absence of other specified parts of digestive tract; R16.1 Splenomegaly, not elsewhere classified; I25.10 Atherosclerotic heart disease of native coronary artery without angina pectoris; Z95.5 Presence of coronary angioplasty implant and graft; D69.6 Thrombocytopenia, unspecified; Z79.02 Long term (current) use of antithrombotics/antiplatelets; Z98.1 Arthrodesis status; E78.00 Pure hypercholesterolemia, unspecified; I10 Essential (primary) hypertension; K21.9 Gastro-esophageal reflux disease without esophagitis
CPT/HCPCS: 72193; 74177; 80048; 80053; 80202; 82565; 83605; 83690; 83735; 84520; 85025; 85027; 87040; 87070; 87077; 87176; 87186; 87205; 93005; 96361; 96374; 96375; 99284; Q9967